=== PATIENT | female | born 1930 | race Caucasian/White ===

== ENCOUNTER → 2017-05-02 09:15 | Emergency (ER) | payer MEDICARE ==
[~2017-05-02 09:15] MED LIST: diPHENhydraMINE PO* 25 MG PO ONE; traMADol TAB* 50 MG PO ONE
--- NOTE | 2017-05-02 12:42 | RAD ---
INDICATION: Right rib injury. TECHNIQUE: 4 views of the right ribs and dual-energy PA views of the chest were obtained. FINDINGS: There are numerous old healed right mid and lower posterior lateral rib fractures. In addition, there appear to be acute fractures of the right posterior eighth and ninth ribs. There is an old healed fracture of the proximal right humerus. The heart is within normal limits in size. The lungs are underinflated and grossly clear. No pneumothorax is seen. There is flattening of the diaphragms consistent with chronic obstructive pulmonary disease. IMPRESSION: 1. PROBABLE ACUTE NONDISPLACED FRACTURES OF THE RIGHT POSTERIOR EIGHTH AND NINTH RIBS. 2. NUMEROUS OLD HEALED RIGHT POSTEROLATERAL RIB FRACTURES.
--- NOTE | 2017-05-02 12:46 | ED ---
Back Pain - HPI Summary HPI Summary: Patient presents with right sided thoracic pain after falling back into the side of a wall 2 days ago with no improvement of symptoms or pain. There is a small deformity noted over the right upper back. Patient has scoliosis and kyphosis at baseline. She is otherwise healthy. Denies hitting head or LOC. Denies other pain. She is ambulating OK. She has taken ibuprofen without much relief of symptoms. - History of Current Complaint Chief Complaint: EDBackInjuryPain Stated Complaint: FALL, BACK PAIN Time Seen by Provider: 05/02/17 10:59 Hx Obtained From: Patient Onset/Duration: Sudden Onset Onset/Duration: Started Hours Ago Timing: Constant Back Pain Location: Is Discrete @ - right thoracic rib Severity Currently: Moderate Pain Intensity: 10 Pain Scale Used: 0-10 Numeric Character: Aching, Throbbing Aggravating Symptom(s): Movement Alleviating Symptom(s): Rest Associated Signs And Symptoms: Positive: Other - small deformity noted - Risk Factors AAA Risk Factors: Negative TAD Risk Factors: Negative Cauda Equina Risk Factors: Negative Epidural Abscess Risk Factors: Negative - Allergies/Home Medications Allergies/Adverse Reactions: Allergies Allergy/AdvReac Type Severity Reaction Status Date / Time Penicillins Allergy Hives Verified 05/02/17 12:01 PMH/Surg Hx/FS Hx/Imm Hx Previously Healthy: Yes - Immunization History Hx Pertussis Vaccination: No Immunizations Up to Date: Unable to Obtain/Confirm Infectious Disease History: No Infectious Disease History: Denies: Traveled Outside the [place] in Last 30 Days - Social History Occupation: Unemployed, Retired Lives: With Family Alcohol Use: Rare Alcohol Amount: 2 glasses of wine daily Hx Substance Use: No Substance Use Type: Reports: None Hx Tobacco Use: No Smoking Status (MU): Light Every Day Tobacco Smoker Review of Systems Constitutional: Negative Eyes: Negative Cardiovascular: Negative Respiratory: Negative Positive: no symptoms reported, see HPI Positive: Arthralgia, Myalgia Skin: Negative Neurological: Negative Psychological: Normal All Other Systems Reviewed And Are Negative: Yes Physical Exam Triage Information Reviewed: Yes Vital Signs On Initial Exam: Initial Vitals Temp Pulse Resp BP Pulse Ox 97.8 F 69 16 116/57 95 05/02/17 09:15 05/02/17 09:15 05/02/17 09:15 05/02/17 09:15 05/02/17 09:15 Vital Signs Reviewed: Yes Appearance: Positive: Well-Appearing, Well-Nourished Skin: Positive: Warm, Skin Color Reflects Adequate Perfusion Head/Face: Positive: Normal Head/Face Inspection Eyes: Positive: EOMI, JUSTIN, Conjunctiva Clear Neck: Positive: Supple, No Lymphadenopathy Respiratory/Lung Sounds: Positive: Clear to Auscultation, Breath Sounds Present Cardiovascular: Positive: Normal Musculoskeletal: Positive: Pain @ - right thoracic rib Neurological: Positive: Alert, Oriented to Person Place, Time, Speech Normal Psychiatric: Positive: Normal AVPU Assessment: Alert - Katty Coma Scale Coma Scale Total: 15 Diagnostics - Vital Signs Vital Signs Temp Pulse Resp BP Pulse Ox 05/02/17 12:02 98.3 F 74 16 138/50 96 05/02/17 11:32 78 16 144/49 96 05/02/17 10:47 98.1 F 63 17 73/46 95 05/02/17 09:15 97.8 F 69 16 116/57 95 - Laboratory Lab Statement: Any lab studies that have been ordered have been reviewed, and results considered in the medical decision making process. Back Pain Course/Dx - Course Course Of Treatment: Patient presents with 2 days worsening right thoracic rib pain after falling backwards into a wall. Rib series : IMPRESSION: 1. PROBABLE ACUTE NONDISPLACED FRACTURES OF THE RIGHT POSTERIOR EIGHTH AND NINTH RIBS. 2. NUMEROUS OLD HEALED RIGHT POSTEROLATERAL RIB FRACTURES. Tramadol given with reaction of anxiety and restlessness. Benadryl 25mg given in ED. Sent home with rx for oxycodone and follow up as needed. Paitent and daughter made aware of plan and is OK with discharge. Patient will follow up with PCP and return if symptoms become worse. Return precautions given, medications and side effects reviewed. - Diagnoses Differential Diagnosis/HQI/PQRI: Positive: Fracture, Strain, Sprain Provider Diagnoses: Right rib fracture Discharge - Discharge Plan Condition: Stable Disposition: HOME Prescriptions: Oxycodone-Ibuprofen [Oxycodone/Ibuprofen 5-400 mg] 1 tab PO Q6H #20 tab MDD 4 Patient Education Materials: Rib Fracture (ED) Referrals: Non Staff,Doctor [Primary Care Provider] - Additional Instructions: Follow up with PCP If symptoms become worse, return to the ED immediately
[2017-05-02 13:09] VITALS: BP 131/88
== END | disposition home or self-care (01) ==
LOC: ED 09:15
DX: S22.31XA Fracture of one rib, right side, initial encounter for closed fracture (principal); W19.XXXA Unspecified fall, initial encounter; Y93.9 Activity, unspecified; Y92.9 Unspecified place or not applicable
CPT/HCPCS: 99282; A9270-GY

== ENCOUNTER 2018-05-03 13:28 | Emergency (ER) | payer MEDICARE ==
[2018-05-03] MEDS ORDERED: Acetaminophen TAB* 325 MG PO ONE (13:52)
--- NOTE | 2018-05-03 14:39 | ED ---
Adult Trauma - HPI Summary HPI Summary: Patient is an 87-year-old female who presents emergency department for a facial injury after falling just prior to arrival. History was obtained from patient' s daughter who was at bedside. Patient does reside with her daughter and has a history of Parkinson's disease. Patient's daughter states she does have frequent falls. She states they were getting out of the car when she slipped on the wet ground and fell. Patient's daughter states that she has not been sick recently or had any complaints of lightheadedness, dizziness, chest pain, shortness of breath. Patient's only complaint is pain to her upper lip. She is not anticoagulated. Symptoms are moderate in severity. Touching affected area makes symptoms worse. Rest makes symptoms better. - History of Current Complaint Chief Complaint: EDFacialInjury Stated Complaint: FALL Time Seen by Provider: 05/03/18 13:37 Hx Obtained From: Family/Push Connector Assembler Hx From Patient Unobtainable Due To: Dementia Pain Intensity: 5 - Allergy/Home Medications Allergies/Adverse Reactions: Allergies Allergy/AdvReac Type Severity Reaction Status Date / Time MS Penicillins [Penicillins] Allergy Hives Verified 02/08/18 12:11 PMH/Surg Hx/FS Hx/Imm Hx Previously Healthy: Yes Endocrine/Hematology History: Denies: Hx Diabetes Cardiovascular History: Denies: Hx Hypertension, Hx Pacemaker/ICD History: Denies: Hx Renal Disease Sensory History: Denies: Hx Hearing Aid Psychiatric History: Denies: Hx Panic Disorder - Surgical History Surgery Procedure, Year, and Place: CATARCT - [facility]. LT BREAST - LUMPECTOMY - BENIGN. VARICOSE VEINS Infectious Disease History: No Infectious Disease History: Denies: Traveled Outside the [place] in Last 30 Days - Social History Occupation: Retired Lives: With Family Alcohol Use: Rare Alcohol Amount: 1/2 glasses of wine daily Hx Substance Use: No Substance Use Type: Reports: None Hx Tobacco Use: No Smoking Status (MU): Former Smoker Review of Systems Constitutional: Negative Eyes: Negative ENT: Negative Cardiovascular: Negative Respiratory: Negative Gastrointestinal: Negative Genitourinary: Negative Positive: Other - Nasal pain Positive: Headache. Negative: Weakness, Paresthesia, Numbness, Syncope, Slurred Speech All Other Systems Reviewed And Are Negative: Yes Physical Exam Triage Information Reviewed: Yes Vital Signs On Initial Exam: Initial Vitals Temp Pulse Resp BP Pulse Ox 97.8 F 74 18 168/65 94 05/03/18 13:35 05/03/18 13:35 05/03/18 13:35 05/03/18 13:35 05/03/18 13:35 Vital Signs Reviewed: Yes Appearance: Positive: Pain Distress - Pt. lying in bed. Appears to be in pain but is nontoxic. Daughter present. Skin: Positive: Warm, Dry Head/Face: Positive: Other - Ecchymosis and edema noted over the bridge of the nose. Eyes: Positive: Normal, EOMI, JUSTIN ENT: Positive: Other - Very minimal bleeding from the left nare. No septal hematoma bilaterally. 1cm gaping laceration noted to the mid left upper lip. laceration does not cross the [place] border. Neck: Positive: Supple Abdomen Description: Positive: Nontender, Soft Musculoskeletal: Positive: Other - Full ROM of hips without pain. Neurological: Positive: Normal, CN Intact II-III Psychiatric: Positive: Affect/Mood Appropriate Procedures - Laceration/Wound Repair 1 Location: mouth - Upper lip. Pt. decline lacal anesthesia. Description: Linear Length, Depth and Shape: 1cm linear Betadine Prep?: No Irrigated w/ Saline (ccs): 10 Laceration/Wound Explored: clean Closure: Single Layer Suture Type: Chromic - 6-0 Number of Sutures: 2 Layer Closure?: No Sterile Dressing Applied?: No Diagnostics - Vital Signs Vital Signs Temp Pulse Resp BP Pulse Ox 05/03/18 13:35 97.8 F 74 18 168/65 94 - Laboratory Lab Statement: Any lab studies that have been ordered have been reviewed, and results considered in the medical decision making process. Adult Trauma Course/Dx - Course Course Of Treatment: Patient presenting for facial injuries after a mechanical fall. Vital signs are stable. She has minimal epistaxis. CT scan of head, face and neck were obtained. CT scans of head and neck are negative for acute injuries, reading per radiology. Facial x-ray shows bilateral nasal fractures, reading per radiology. To observe all sutures are placed and lip laceration. Results were discussed with patient and daughter. To call the ENT office tomorrow to schedule close follow-up appointment. Tylenol for pain as directed. To ice and elevate. To return to the ER symptoms change or worsen. Patient and daughter understand and agree with plan. - Diagnoses Differential Diagnosis/HQI/PQRI: Positive: Contusion(s), Fracture, Hematoma(s), Laceration(s) Provider Diagnoses: Nasal bone fractures, Lip laceration Discharge - Sign-Out/Discharge Documenting (check all that apply): Patient Departure - Discharge Plan Condition: Good Disposition: HOME Patient Education Materials: Nasal Fracture (ED), Care For Your Absorbable Stitches (ED) Referrals: Jay Bunch MD [Medical Doctor] - Jay Delacruz MD [Primary Care Provider] - Additional Instructions: Call Dr. Bunch's office today to schedule a follow up appointment Ice intermittently Keep head elevated Tylenol or Motrin for pain as directed Return to ER if symptoms change or worsen - Billing Disposition and Condition Condition: GOOD Disposition: Home
--- NOTE | 2018-05-03 14:51 | RAD ---
HISTORY: fall, unable to straighten head COMPARISONS: None TECHNIQUE: Multiple contiguous axial CT scans were obtained of the cervical spine without intravenous contrast, with coronal and sagittal multiplanar reformations. FINDINGS: BRAIN: The visualized brain is unremarkable CENTRAL CANAL: Evaluation of the central canal is limited on CT technique; however, there is no obvious canalicular mass or epidural hemorrhage. ALIGNMENT: There is straightening of the cervical lordosis. VERTEBRAL BODIES: There is diffuse osteopenia. Is multilevel anterolateral marginal osteophyte formation. There is no displaced fracture. JOINTS: There is uncovertebral and facet osteoarthritis. There is no subluxation or dislocation. MUSCULATURE: Unremarkable INTERVERTEBRAL DISCS: There is diffuse loss of intervertebral disc height. AXIAL IMAGES: C2-C3: There is right greater than left uncovertebral and facet hypertrophy. There is mild right neural foraminal narrowing. There is no osseous central canal stenosis. C3-C4: There is bilateral uncovertebral and facet hypertrophy. There is moderate left neural foraminal area. There is no osseous central canal stenosis. C4-C5: There is bilateral uncovertebral and facet hypertrophy. There is mild bilateral neuroforaminal narrowing. There is no osseous central canal stenosis. C5-C6: There is bilateral uncovertebral and facet hypertrophy. There is moderate bilateral neuroforaminal narrowing. There is no osseous central canal stenosis. C6-C7: There is bilateral uncovertebral hypertrophy. There is mild bilateral neural foraminal narrowing. There is no osseous central canal stenosis. C7-T1: There is no osseous neural foraminal narrowing or central canal stenosis. SOFT TISSUES: The visualized soft tissues of the neck are unremarkable. The prevertebral fat stripe is preserved. OTHER: None. IMPRESSION: 1. OSTEOPENIA. 2. DEGENERATIVE DISC DISEASE AND OSTEOARTHRITIS. 3. NO ACUTE OSSEOUS INJURY TO THE CERVICAL SPINE.
--- NOTE | 2018-05-03 14:52 | RAD ---
INDICATION: Head injury. COMPARISON: Comparison is made with prior MRI of the brain from February 09, 2018. TECHNIQUE: Contiguous axial sections of the brain were obtained from the skull base to the vertex without contrast. FINDINGS: The ventricles, cisterns and sulci are enlarged consistent with diffuse atrophy. There are small areas of decreased density in the subcortical and periventricular white matter suggestive of mild chronic small vessel ischemic changes. No other focal abnormality or mass effect is seen. There is no evidence for hemorrhage. There appear to be comminuted displaced fractures of the nasal bones. The visualized portion of the paranasal sinuses appear grossly clear. IMPRESSION: NO EVIDENCE FOR ACUTE INTRACRANIAL ABNORMALITY.
--- NOTE | 2018-05-03 14:53 | RAD ---
HISTORY: fall COMPARISONS: None TECHNIQUE: Multiple contiguous axial CT scans were obtained of the face without intravenous contrast, with coronal and sagittal multiplanar reformations. FINDINGS: BONES: There are comminuted fractures of the nasal bones bilaterally. There is diffuse osteopenia. Is intact. The zygomatic arches are intact. The pterygoid plates are intact. There is osteoarthritis of the temporomandibular joints, greater on the right than on the left. ORBITS: The globes are round. The optic nerves are symmetric. The extraocular musculature is normal. There is no post septal or intraconal inflammatory change. There is no retrobulbar hematoma. Senile calcifications are noted. PARANASAL SINUSES: The nasal septum is deviated to the left. There is mucosal thickening of the ethmoid air cells and left nasal cavity. BRAIN AND SOFT TISSUE: Unremarkable. OTHER: Degenerative changes are noted of the spine. IMPRESSION: COMMINUTED FRACTURES OF THE NASAL BONES BILATERALLY.
[2018-05-03 16:36] VITALS: BP 142/78
== END 2018-05-03 16:25 | disposition home or self-care (01) ==
LOC: ED 13:28
DX: S02.2XXA Fracture of nasal bones, initial encounter for closed fracture (principal); S01.511A Laceration without foreign body of lip, initial encounter; W01.0XXA Fall on same level from slipping, tripping and stumbling without subsequent striking against object, initial encounter; Z91.81 History of falling; Y93.89 Activity, other specified; Y92.9 Unspecified place or not applicable; M85.88 Other specified disorders of bone density and structure, other site; Z88.0 Allergy status to penicillin; Z87.891 Personal history of nicotine dependence
CPT/HCPCS: 12011; 70450; 70486; 72125; 99283; A9270-GY

== ENCOUNTER 2018-05-10 20:35 | Inpatient (IN) | payer MEDICARE ==
[2018-05-10 22:24] LABS: ABS Basophils 0.1 10^3/ul (0-0.2); ABS Eosinophils 0.1 10^3/ul (0-0.6); ABS Lymphocytes 1.9 10^3/ul (1.0-4.8); ABS Monocytes 0.7 10^3/ul (0-0.8); ABS Neutrophils 8.4 10^3/ul (1.5-7.7); ABS Nucleated RBC 0 10^3/ul; Eosinophil % 0.6 % (0-6); Hematocrit 33 % (35-47); Lymphocyte % 16.9 % (25-47); Mean Corpuscular HGB Conc 33 g/dl (31-36); Mean Corpuscular Hemoglobin 29 pg (27-31); Mean Corpuscular Volume 88 fL (80-97); Mean Platelet Volume 8.8 um3 (7.4-10.4); Nucleated Red Blood Cells % 0; Platelet Count 250 10^3/ul (150-450); Red Cell Distribution Width 16 % (10.5-15); White Blood Count 11.1 10^3/ul (3.5-10.8)
[2018-05-10 22:30] LABS: INR 1.02 (0.77-1.02)
[2018-05-10] MEDS ORDERED: NS 0.9% 500 ML* 500 ML IV ONE (23:53)
[2018-05-11] MEDS ORDERED: NS 0.9% 1000 ML*IV.FLUID IV ONE (00:54)
[2018-05-11] MEDS ORDERED: NS 0.9% 500 ML* 500 ML IV ONE (01:27)
--- NOTE | 2018-05-11 01:57 | ED ---
Throat Pain/Nasal Congestion - HPI Summary HPI Summary: Patient complains of intermittent epistaxis over the past week after fall and subsequent nasal fracture per maxillofacial CT. Patient followed by [facility] or. Patient was seen by Drs. zaldivar to this morning. Patient can't complains of persistent epistaxis since visiting clinic this a.m. Also complains of weakness, shortness of breath, inability to ambulate. Family states unable to take care of her in this condition. Denies fever, cough, sore throat, CP, N/V/D, abdominal pain, change in urine or BM. Medical history is Parkinson's. No anti-coag. - History of Current Complaint Chief Complaint: EDEpistaxis Time Seen by Provider: 05/10/18 20:53 Hx Obtained From: Patient Onset/Duration: Gradual Onset Severity: Moderate Associated Signs And Symptoms: Positive: Negative Cough: None - Allergies/Home Medications Allergies/Adverse Reactions: Allergies Allergy/AdvReac Type Severity Reaction Status Date / Time Penicillins Allergy Hives Verified 05/10/18 23:09 Home Medications: Home Medications Amantadine HCl [Gocovri] 137 mg PO DAILY 05/10/18 [History Confirmed 05/10/18] Carbidopa/Levodopa [Carbidopa-Levodopa 25-100 Tab] 1 each PO QID 05/10/18 [ History Confirmed 05/10/18] Fludrocortisone Acetate TAB* [Florinef TAB*] 0.1 mg PO DAILY 05/10/18 [History Confirmed 05/10/18] Gabapentin CAP(*) [Neurontin 300 CAP(*)] 300 mg PO BID 05/10/18 [History Confirmed 05/10/18] Sertraline HCl [Zoloft] 75 mg PO DAILY 05/10/18 [History Confirmed 05/10/18] PMH/Surg Hx/FS Hx/Imm Hx Endocrine/Hematology History: Denies: Hx Anticoagulant Therapy, Hx Diabetes Cardiovascular History: Denies: Hx Hypertension, Hx Pacemaker/ICD History: Denies: Hx Renal Disease Sensory History: Denies: Hx Hearing Aid Psychiatric History: Denies: Hx Panic Disorder - Surgical History Surgery Procedure, Year, and Place: CATARCT - [facility]. LT BREAST - LUMPECTOMY - BENIGN. VARICOSE VEINS Infectious Disease History: No Infectious Disease History: Denies: Traveled Outside the [place] in Last 30 Days - Social History Alcohol Use: Occasionally Alcohol Amount: 1/2 glasses of wine daily Hx Substance Use: No Substance Use Type: Reports: None Hx Tobacco Use: No Smoking Status (MU): Former Smoker Review of Systems Constitutional: Negative Eyes: Negative Positive: Epistaxis Cardiovascular: Negative Positive: Shortness Of Breath Gastrointestinal: Negative Genitourinary: Negative Musculoskeletal: Negative Skin: Negative Positive: Weakness Psychological: Normal All Other Systems Reviewed And Are Negative: Yes Physical Exam - Summary Physical Exam Summary: Very minimal bleeding from nose here in the ED. Front of clothing covered in blood. Patient alert oriented, appears weak and anxious. Triage Information Reviewed: Yes Vital Signs On Initial Exam: Initial Vitals Temp Pulse Resp BP Pulse Ox 98.6 F 130 20 125/75 95 05/10/18 20:38 05/10/18 20:38 05/10/18 20:38 05/10/18 20:38 05/10/18 20:38 Vital Signs Reviewed: Yes Appearance: Positive: Well-Appearing Skin: Positive: Warm Head/Face: Positive: Normal Head/Face Inspection Eyes: Positive: Normal ENT: Positive: Normal ENT inspection Neck: Positive: Supple Respiratory/Lung Sounds: Positive: Clear to Auscultation Cardiovascular: Positive: Normal Abdomen Description: Positive: Nontender Musculoskeletal: Positive: Normal Neurological: Positive: Normal Psychiatric: Positive: Normal AVPU Assessment: Alert - Katty Coma Scale Best Eye Response: 4 - Spontaneous Best Motor Response: 6 - Obeys Commands Best Verbal Response: 5 - Oriented Coma Scale Total: 15 Diagnostics - Vital Signs Vital Signs Temp Pulse Resp BP Pulse Ox 05/11/18 01:18 116 184/99 95 05/11/18 01:00 117 93 05/11/18 00:48 126 140/97 95 05/11/18 00:18 129 165/95 98 05/11/18 00:00 127 97 05/10/18 23:48 123 155/102 98 05/10/18 23:46 119 97 05/10/18 23:18 120 147/91 99 05/10/18 23:04 118 98 05/10/18 23:02 98 F 121 16 131/86 99 05/10/18 20:38 98.6 F 130 20 125/75 95 - Laboratory Lab Results: Lab Results 05/10/18 05/10/18 Range/Units 22:15 22:15 WBC 11.1 H (3.5-10.8) 10^3/ul RBC 3.80 L (4.00-5.40) 10^6/ul Hgb 11.0 L (12.0-16.0) g/dl Hct 33 L (35-47) % MCV 88 (80-97) fL MCH 29 (27-31) pg MCHC 33 (31-36) g/dl RDW 16 H (10.5-15) % Plt Count 250 (150-450) 10^3/ul MPV 8.8 (7.4-10.4) um3 Neut % (Auto) 75.6 (38-83) % Lymph % (Auto) 16.9 L (25-47) % Mclean % (Auto) 6.0 (0-7) % Eos % (Auto) 0.6 (0-6) % Baso % (Auto) 0.9 (0-2) % Absolute Neuts (auto) 8.4 H (1.5-7.7) 10^3/ul Absolute Lymphs (auto) 1.9 (1.0-4.8) 10^3/ul Absolute Monos (auto) 0.7 (0-0.8) 10^3/ul Absolute Eos (auto) 0.1 (0-0.6) 10^3/ul Absolute Basos (auto) 0.1 (0-0.2) 10^3/ul Absolute Nucleated RBC 0 10^3/ul Nucleated RBC % 0 INR (Anticoag Therapy) 1.02 (0.77-1.02) Result Diagrams: 05/10/18 22:15 05/11/18 01:59 Lab Statement: Any lab studies that have been ordered have been reviewed, and results considered in the medical decision making process. - EKG 1 Cardiac Rate: Other Rate EKG Rhythm: Atrial Flutter ST Segment: Non-Specific Ectopy: None EKG Interpretation: stable afib EENT Course/Dx - Course Course Of Treatment: Patient complains of intermittent epistaxis over the past week after fall and subsequent nasal fracture per maxillofacial CT. Patient followed by ENT Dr oWlf. Patient was seen by Timur Bunch this morning. Patient complains of persistent epistaxis since visiting clinic this a.m. Also complains of weakness, shortness of breath, inability to ambulate. Family states unable to take care of her in this condition. Denies fever, cough , sore throat, CP, N/V/D, abdominal pain, change in urine or BM. Medical history is Parkinson's. No anti-coag. Discussed patient with Dr. Duran director geothermal operations for ENT, who recommended nasal packing. And follow-up with his trauma injury Wednesday for scheduled surgery. Patient refused packing. Very minimal bleeding from nose here in the ED. Front of clothing covered in blood. Patient alert oriented, appears weak and anxious. Labs and imaging unremarkable. Vital signs unremarkable other than tachycardia. Patient is in very anxious state. Discussed patient with hospitalist Dr. Pennington for failure to thrive and inability take care of herself. Will admit. - Diagnoses Provider Diagnoses: Weakness, Unable to ambulate, Epistaxis Discharge - Sign-Out/Discharge Documenting (check all that apply): Patient Departure - Discharge Plan Condition: Stable Disposition: ADMITTED TO [facility] Referrals: Jay Delacruz MD [Primary Care Provider] - - Billing Disposition and Condition Condition: STABLE Disposition: Admitted to [facility]
[2018-05-11 02:25] LABS: EGFR Non-African American 83.3 (>60)
[2018-05-11] MEDS ORDERED: Albuterol 2.5 MG/3 ML NEB.SOL* (0.083%) INH PRN (03:42)
[2018-05-11] MEDS ORDERED: Ondansetron INJ* 2 MG/ML VIAL IV PRN (03:42)
[2018-05-11] MEDS ORDERED: Al Hydrox/Mg Hydrox/Simet LIQ* 30 ML UDC PO PRN (03:42)
[2018-05-11] MEDS ORDERED: oxyCODONE/Acetamin 5/325 MG* TAB PO PRN (03:42)
[2018-05-11] MEDS ORDERED: Magnesium Hydroxide LIQ* 30 ML UDC PO PRN (03:42)
[2018-05-11] MEDS ORDERED: Morphine INJ* 2 MG/ML 1 ML SYRINGE (TWO MG - NEW SYRINGE VERSION) IV PRN (03:42)
[2018-05-11] MEDS ORDERED: LORazepam TAB(*) 0.5 MG PO PRN (03:58)
[2018-05-11] MEDS ORDERED: Melatonin 3 MG TAB PO SCH (05:00)
[2018-05-11] MEDS ORDERED: Melatonin 3 MG TAB PO PRN (05:27)
[2018-05-11] MEDS: NS 0.9% 1000 ML* 1,000 ML IV SCH ×2 (05:39→21:44)
[2018-05-11 06:49] LABS: ABS Basophils 0.1 10^3/ul (0-0.2); ABS Eosinophils 0 10^3/ul (0-0.6); ABS Lymphocytes 2.2 10^3/ul (1.0-4.8); ABS Monocytes 0.7 10^3/ul (0-0.8); ABS Neutrophils 9.5 10^3/ul (1.5-7.7); ABS Nucleated RBC 0 10^3/ul; Eosinophil % 0.2 % (0-6); Hematocrit 28 % (35-47); Hemoglobin 9.1 g/dl (12.0-16.0); Lymphocyte % 17.5 % (25-47); Mean Corpuscular HGB Conc 33 g/dl (31-36); Mean Corpuscular Hemoglobin 29 pg (27-31); Mean Corpuscular Volume 89 fL (80-97); Mean Platelet Volume 9.1 um3 (7.4-10.4); Nucleated Red Blood Cells % 0; Platelet Count 248 10^3/ul (150-450); Red Blood Count 3.13 10^6/ul (4.00-5.40); Red Cell Distribution Width 15 % (10.5-15); White Blood Count 12.5 10^3/ul (3.5-10.8)
--- NOTE | 2018-05-11 07:56 | RAD ---
HISTORY: sob COMPARISONS: None VIEWS: 1: frontal portable view of the chest at 1:55 AM. The patient is obliqued to the left. FINDINGS: LINES AND TUBES: None. CARDIOMEDIASTINAL SILHOUETTE: The cardiomediastinal silhouette is normal for portable technique. PLEURA: The costophrenic angles are sharp. No pleural abnormalities are noted. LUNG PARENCHYMA: There is hyperinflation. ABDOMEN: The upper abdomen is clear. There is no subphrenic gas. BONES AND SOFT TISSUES: There is chronic posttraumatic deformity to the right hemithorax and proximal left humerus. There is diffuse osteopenia. Degenerative changes are noted. There is atherosclerotic calcification of the neck. IMPRESSION: 1. LIMITED STUDY. 2. COPD. R1
[2018-05-11] MEDS: Gabapentin CAP(*) 300 MG PO SCH ×2 (07:57→20:31)
[2018-05-11] MEDS: Carbidopa/Levodop 25/100 MG TAB(*) PO SCH ×4 (07:57→20:32)
[2018-05-11] MEDS: Sertraline* 25 MG TAB PO SCH (07:57)
[2018-05-11] MEDS: Fludrocortisone Acetate TAB* 0.1 MG PO SCH ×2 (08:00→08:07)
--- NOTE | 2018-05-11 08:32 | HP ---
CC: Dr. Jay Delacruz* ADMISSION HISTORY AND PHYSICAL: DATE OF ADMISSION: 05/11/18 PATIENT OF: Khadra Pennington MD as attending hospitalist.* (DICTATED BY KIM AVILA) PRIMARY CARE PHYSICIAN: Jay Delacruz MD CHIEF COMPLAINT: Epistaxis. HISTORY OF PRESENT ILLNESS: Ms. Vinson is an 87-year-old female who has past medical history significant for advanced Parkinson's disease who unfortunately sustained a fall about a week ago falling on her face with subsequent nasal fracture for which she had an ED visit with a CT scan. She had initial epistaxis that was well controlled back then and eventually discharged home to be followed by ENT doctor. The patient and her daughter report seeing Dr. Bunch in his clinic and plans were made for her to return to the operating room by the end of this week to undergo fixation of her broken nose. According to the daughter, Bea who takes care of her mother at home, she has been doing well since her fall except for last night when she started having intermittent nosebleed as well. The patient is noted to introduce her finger to her nostril on occasion, but denies any aggressive nose blowing or sneezing. She occasionally feels some blood drops on back of her throat, but denies any cough, aspiration, chest pain, or shortness of breath. She presented to the emergency room today after she had a long episode of nosebleed. She had laboratory workup that showed stable hemoglobin and hematocrit with no evidence of significant anemia. The patient also notes that overall she has not been feeling very well since her fall last week. According to her daughter, she has been slowing down in general with some declining in her overall health for what she came to the emergency room for further evaluation. Dr. Duran was contacted by the emergency department provider and he recommended admitting the patient and we will obtain an ENT consult in the morning. The patient does not have any active nosebleed at the time of admission; however, it was recommended for her to have a nasal packing inserted; however, she declined any packing due to her increased level of discomfort with this device. PAST MEDICAL HISTORY: Significant for: 1. History of Parkinson's disease. 2. Seasonal allergies. 3. Chronic pain. PAST SURGICAL HISTORY: Significant for bilateral cataract extractions. It is noted that the patient is legally blind; she can only recognize shadows from both eyes. 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 CURRENT MEDICATIONS: Her medications at home include: 1. Amantadine extended release 137 mg p.o. daily. 2. Carbidopa/levodopa 25/100 mg 1 tablet p.o. q.i.d. 3. Florinef 0.1 mg tablet p.o. once daily. 4. Neurontin 300 mg p.o. b.i.d. 5. Zoloft 75 mg p.o. daily. ALLERGIES: She is allergic to PENICILLINS. SOCIAL HISTORY: The patient lives at home with her daughter caring for her who also is the healthcare proxy. She is a nonsmoker who drinks very little alcohol on rare occasions. She denies illicit drug use. FAMILY HISTORY: Reviewed and noncontributory. REVIEW OF SYSTEMS: See HPI. Otherwise, 12 points of review of systems were examined and were essentially negative. PHYSICAL EXAMINATION GENERAL: She is a frail, elderly female, appears comfortable and in no acute distress or discomfort at the time of admission. VITAL SIGNS: Revealed a blood pressure 174/97, pulse of 122, temperature of 98 , O2 sat of 92% on room air. HEENT: Head is normocephalic, atraumatic. Sclerae are anicteric. Nose with a slight deviation of the septum to the right side. Left nostril appears dry, right nostril with old clotted blood noted, no evidence of active bleeding. There is a very mild tenderness at the nasal septum with residual ecchymosis. Pharynx is pink and moist with no evidence of posterior bleed noted. NECK: Supple. Trachea midline. No cervical adenopathy or thyromegaly. LUNGS: Clear to auscultation bilaterally. HEART: Regular rhythm with increased rate. No rubs, murmurs, or gallops. BACK: With normal curvature. No CVA tenderness. BREASTS: Exam deferred at this time. ABDOMEN: Soft, nontender, nondistended. No hernias, masses, or hepatosplenomegaly. RECTAL: Exam deferred at this time. EXTREMITIES: Without cyanosis, clubbing, or edema. NEUROLOGIC: She is awake, alert, oriented and cooperative. LABORATORY WORKUP: CBC with white count of 11,000, hemoglobin of 11, and hematocrit of 33, platelets of 250. Her INR is 1.02. Chemistry with sodium of 142, potassium 4.2, chloride 112, CO2 24, BUN of 44 and creatinine of 0.67. Her glucose is 114. LFTs within normal limits. Troponin 0.01. ACCESSORY DIAGNOSTIC DATA: Portable chest with no evidence of acute cardiopulmonary disease. Her EKG revealed sinus tachycardia with heart rate in the 110s. No ST changes noted. IMPRESSION: An 87-year-old female with past medical history significant for advanced Parkinson's disease who sustained a fall at home a week ago resulting in facial injury and nasal fracture with secondary epistaxis who continued to have intermittent epistaxis at home and presented to the emergency room today for evaluation and will be admitted for observation under medical services for the following. ASSESSMENT AND PLAN: 1. Epistaxis. The patient is hemodynamically stable at this point with no evidence of active bleeding. She had refused nasal packing at this point. I have discussed with her that if the bleeding become an issue and could not be stopped in a conservative fashion, then we might need to use nasal packing to control her epistaxis. We will recheck her H and H in the morning and consultation already done for Dr. Duran who will see the patient for further evaluation. at this point, the patient may need to go to the operating room earlier than Wednesday for control of her epistaxis and possible fixation of her nasal fracture. She appears to be breathing smoothly with good oxygen saturation. 2. History of Parkinson's disease. We will provide supportive care and we will continue her home medicine of carbidopa/levodopa as well as amantadine. 3. Anxiety, depression. We will continue her home dose of Zoloft. 4. Chronic pain. She will continue her gabapentin from home. 5. DVT prophylaxis: The patient is a high risk given her age; however, with her recent intermittent nosebleed, I will hold off any heparin coverage for the time being and we will provide mechanical SCDs for now. 6. Code status: She wishes to be DNR and her MOLST form was reviewed and updated. 7. Disposition: Admit to medical floor for observation and ENT consultation in the morning for control of epistaxis and eventually OR for fixation of nasal bone fracture. TIME SPENT: Approximately 60 minutes was spent admitting this patient with greater than 50% on taking history and performing physical exam. I went on and discussed the case with Dr. Pennington, who agreed to plan of care and will follow up accordingly. KIM AVILA [id number]/[facility] #: [id number] [facility] CENTERCesilia
--- NOTE | 2018-05-11 08:40 | PN ---
Subjective Date of Service: 05/11/18 Interval History: Patient seen and examined at bedside. Denies fever, chills, lightheadedness or dizziness, chest discomfort, N/V/D. Pt states that she is having "trouble breathing". She is unable to breath through her nose due to dry blood. Breathing appears to be comfortable at this time, Pt asking to have oximask removed. Pt states that she isn't aware of a dx of A fib. Per NSG staff Pt has been tachycardic since arrival to the unit. The also report that when she is set up, she has a bloody nose. Pt is currently sitting up at 40 degree with no bleeding noted. Kelli states that she saw Dr. Bunch last week and is scheduled for a procedure this Wednesday. Family History: Unchanged from Admission Social History: Unchanged from Admission Past Medical History: Unchanged from Admission Objective Active Medications: Acetaminophen (Tylenol Tab*) 650 mg PO Q4H PRN Reason: FEVER/PAIN Al Hydrox/Mg Hydrox/Simethicone (Maalox Plus*) 30 ml PO Q6H PRN Reason: INDIGESTION Albuterol (Ventolin 2.5 Mg/3 Ml Neb.Hanh*) 2.5 mg INH [id number] AWAKE PRN Reason: sob/wheezing Carbidopa/Levodopa (Sinemet 25/100 Tab(*)) 1 tab PO QID JOHNATHAN Fludrocortisone Acetate (Florinef Tab*) 0.1 mg PO DAILY JOHNATHAN Gabapentin (Neurontin Cap(*)) 300 mg PO BID JOHNATHAN Sodium Chloride (Ns 0.9% 1000 Ml*) 1,000 mls @ 75 mls/hr IV PER RATE JOHNATHAN Magnesium Hydroxide (Milk Of Magnesia Liq*) 30 ml PO Q4H PRN Reason: CONSTIPATION Melatonin (Melatonin) 3 mg PO QPM PRN; Protocol Reason: SLEEP Morphine Sulfate (Morphine Inj ((Syringe))*) 1 mg IV Q4H PRN Reason: PAIN Non-Formulary Medication (Amantadine Hcl [Gocovri]) 137 mg PO DAILY JOHNATHAN Ondansetron HCl (Zofran Inj*) 4 mg IV Q4H PRN Reason: NAUSEA/VOMITING Oxycodone/Acetaminophen (Percocet 5/325 Tab*) 1 tab PO Q4H PRN Reason: Pain Sertraline HCl (Zoloft*) 75 mg PO DAILY JOHNATHAN Vital Signs - 8 hr 05/11/18 05/11/18 05/11/18 00:48 01:00 01:18 Temperature Pulse Rate 126 117 116 Respiratory Rate Blood Pressure 140/97 184/99 (mmHg) O2 Sat by Pulse 95 93 95 Oximetry 05/11/18 05/11/18 05/11/18 01:48 02:00 02:18 Temperature Pulse Rate 110 110 113 Respiratory Rate Blood Pressure 152/100 175/87 (mmHg) O2 Sat by Pulse 94 95 96 Oximetry 05/11/18 05/11/18 05/11/18 02:48 03:00 03:18 Temperature Pulse Rate 122 122 132 Respiratory Rate Blood Pressure 174/97 179/110 (mmHg) O2 Sat by Pulse 92 93 94 Oximetry 05/11/18 05/11/18 05/11/18 03:48 04:00 04:18 Temperature Pulse Rate 124 124 135 Respiratory Rate Blood Pressure 165/88 143/117 (mmHg) O2 Sat by Pulse 95 96 93 Oximetry 05/11/18 05/11/18 05/11/18 04:24 04:49 05:48 Temperature 97.8 F 97.8 F Pulse Rate 122 133 Respiratory 20 12 Rate Blood Pressure 143/117 (mmHg) O2 Sat by Pulse 95 96 Oximetry 05/11/18 07:57 Temperature Pulse Rate Respiratory 28 Rate Blood Pressure (mmHg) O2 Sat by Pulse Oximetry Oxygen Devices in Use Now: OxyMask - 2 L Appearance: NAD, sitting up in bed at 40 degrees Ears/Nose/Mouth/Throat: Mucous Membranes Moist, - - Dry crusting to left nare Respiratory: Symmetrical Chest Expansion and Respiratory Effort, Clear to Auscultation Cardiovascular: NL Sounds; No Murmurs; No JVD, RRR - , tachycardic Abdominal: NL Sounds; No Tenderness; No Distention Extremities: No Edema Skin: No Rash or Ulcers, - - Ecchymosis to face Neurological: Alert and Oriented x 3, NL Muscle Strength and Tone Lines/Tubes/Other Access: Clean, Dry and Intact Peripheral IV - site benign Nutrition: Taking PO's Result Diagrams: 05/11/18 06:16 05/11/18 01:59 Assess/Plan/Problems-Billing Assessment: Ms. Vinson is an 87 yo female with PMH significant for Parkinson's disease and legally blind who fell approximately 1 week ago resulting in a nasal fracture, she presented to the emergency room with complaints of - Patient Problems (1) Epistaxis Code(s): R04.0 - EPISTAXIS SNOMED Code(s): 295498557 Comment: - Bleeding controlled at this time - ENT consult pending (2) Tachycardia Code(s): R00.0 - TACHYCARDIA, UNSPECIFIED SNOMED Code(s): 7534475 Comment: - EKG this AM shows sinus tachycardia - Suspect secondary to anxiety (3) Anemia Code(s): D64.9 - ANEMIA, UNSPECIFIED SNOMED Code(s): 235258521 Comment: - Suspect secondary to acute blood loss anemia in the setting of epistaxis - Asymptomatic, HH stable at this time - Continue to trend HH (4) Parkinson disease Code(s): G20 - PARKINSON'S DISEASE SNOMED Code(s): 13207035 Comment: - Continue Sinemet and Amantadine (5) Anxiety and depression Code(s): F41.9 - ANXIETY DISORDER, UNSPECIFIED; F32.9 - MAJOR DEPRESSIVE DISORDER, SINGLE EPISODE, UNSPECIFIED SNOMED Code(s): 91918463 Comment: - Continue zoloft (6) Chronic pain Code(s): G89.29 - OTHER CHRONIC PAIN SNOMED Code(s): 65145491 Comment: - Continue gabapentin (7) DVT prophylaxis Code(s): LSE1743 - SNOMED Code(s): 025427716 Comment: - SCDs - No chemical DVT prophylaxis in the setting of epistaxis (8) DNR (do not resuscitate) Status and Disposition: Inpatient. Discharge to home when medically stable.
[2018-05-11] MEDS ORDERED: AMANTADINE HCL 137 MG PO SCH (09:00)
[2018-05-11] MEDS: AMANTADINE HCL 137 MG PO SCH (18:02)
[2018-05-11] MEDS: Acetaminophen TAB* 325 MG PO PRN (21:45)
[2018-05-12 07:48] LABS: ABS Basophils 0.1 10^3/ul (0-0.2); ABS Eosinophils 0.2 10^3/ul (0-0.6); ABS Lymphocytes 2.9 10^3/ul (1.0-4.8); ABS Monocytes 0.4 10^3/ul (0-0.8); ABS Neutrophils 3.6 10^3/ul (1.5-7.7); ABS Nucleated RBC 0 10^3/ul; Eosinophil % 2.9 % (0-6); Hematocrit 20 % (35-47); Hemoglobin 6.7 g/dl (12.0-16.0); Lymphocyte % 40.5 % (25-47); Mean Corpuscular HGB Conc 34 g/dl (31-36); Mean Corpuscular Hemoglobin 30 pg (27-31); Mean Corpuscular Volume 88 fL (80-97); Mean Platelet Volume 8.9 um3 (7.4-10.4); Nucleated Red Blood Cells % 0.1; Platelet Count 179 10^3/ul (150-450); Red Blood Count 2.25 10^6/ul (4.00-5.40); Red Cell Distribution Width 16 % (10.5-15); White Blood Count 7.1 10^3/ul (3.5-10.8)
[2018-05-12] MEDS: Carbidopa/Levodop 25/100 MG TAB(*) PO SCH ×4 (07:52→20:34)
[2018-05-12] MEDS: Fludrocortisone Acetate TAB* 0.1 MG PO SCH ×2 (07:52→08:02)
[2018-05-12] MEDS: Sertraline* 25 MG TAB PO SCH (07:52)
[2018-05-12] MEDS: Gabapentin CAP(*) 300 MG PO SCH ×2 (07:52→20:34)
[2018-05-12] MEDS: Acetaminophen TAB* 325 MG PO PRN (16:33)
--- NOTE | 2018-05-12 17:30 | PN ---
Subjective Date of Service: 05/12/18 Interval History: Ms. Vinson denies complaint today. She feels that she is likely still having some bleeding as she tastes it when she swallows. She denies chest pain, SOB, nausea, or abdominal pain. Family History: Unchanged from Admission Social History: Unchanged from Admission Past Medical History: Unchanged from Admission Objective Active Medications: Acetaminophen (Tylenol Tab*) 650 mg PO Q4H PRN Al Hydrox/Mg Hydrox/Simethicone (Maalox Plus*) 30 ml PO Q6H PRN Albuterol (Ventolin 2.5 Mg/3 Ml Neb.Hanh*) 2.5 mg INH [id number] AWAKE PRN Carbidopa/Levodopa (Sinemet 25/100 Tab(*)) 1 tab PO 0800,1200,1600,2000 JOHNATHAN Fludrocortisone Acetate (Florinef Tab*) 0.1 mg PO DAILY JOHNATHAN Gabapentin (Neurontin Cap(*)) 300 mg PO BID JOHNATHAN Magnesium Hydroxide (Milk Of Magnesia Liq*) 30 ml PO Q4H PRN Melatonin (Melatonin) 3 mg PO QPM PRN; Protocol Morphine Sulfate (Morphine Inj ((Syringe))*) 1 mg IV Q4H PRN (Amantadine Hcl [ (Gocovri] 137 Mg)) 137 mg PO QPM JOHNATHAN Ondansetron HCl (Zofran Inj*) 4 mg IV Q4H PRN Sertraline HCl (Zoloft*) 75 mg PO DAILY [facility] Vital Signs: Temp Pulse Resp BP Pulse Ox 98.4 F 80 18 133/52 98 05/12/18 16:43 05/12/18 16:43 05/12/18 16:43 05/12/18 16:43 05/12/18 16:43 Oxygen Devices in Use Now: None Appearance: Female lying in bed in NAD Eyes: No Scleral Icterus Ears/Nose/Mouth/Throat: Mucous Membranes Moist Neck: Trachea Midline Respiratory: Symmetrical Chest Expansion and Respiratory Effort, Clear to Auscultation Cardiovascular: NL Sounds; No Murmurs; No JVD, No Edema Abdominal: NL Sounds; No Tenderness; No Distention Lymphatic: No Cervical Adenopathy Extremities: No Edema Skin: No Rash or Ulcers - Scattered ecchymosis noted to face , - - Scattered Ecchymosis noted to face Neurological: Alert and Oriented x 3, - - Tremor noted Result Diagrams: 05/12/18 07:18 08 01:59 Assess/Plan/Problems-Billing Assessment: Ms. Vinson is an 87 yo female with PMH significant for Parkinson's disease and legally blind who fell approximately 1 week ago resulting in a nasal fracture, she presented to the emergency room with complaints of epistaxis. - Patient Problems (1) Anemia Comment: - Acute blood loss due to epistaxis. Hgb down to 6.7 this AM. - Two units of blood transfused today. - Recheck H/H in AM. (2) Epistaxis Comment: - ENT to take to OR tomorrow. (3) Tachycardia Comment: - Resolved. (4) Parkinson disease Comment: - Continue Sinemet and Amantadine (5) Anxiety and depression Comment: - Continue zoloft (6) Chronic pain Comment: - Continue gabapentin (7) DVT prophylaxis Comment: - SCDs - No chemical DVT prophylaxis in the setting of epistaxis (8) DNR (do not resuscitate) Comment: Status and Disposition: Inpatient. Anticipate discharge to home when medically stable.
[2018-05-12] MEDS: AMANTADINE HCL 137 MG PO SCH ×2 (18:16→20:34)
[2018-05-12] MEDS ORDERED: Artificial Tears* 15 ML BTL BOTH EYES PRN (18:49)
[2018-05-12] MEDS ORDERED: Polyethyl Glycol/Propylene Gly OPHTH.SOLN BOTH EYES PRN (19:00)
[2018-05-13 06:16] LABS: Hematocrit 27 % (35-47); Hemoglobin 9.3 g/dl (12.0-16.0)
[2018-05-13] MEDS: Carbidopa/Levodop 25/100 MG TAB(*) PO SCH ×4 (08:19→20:12)
[2018-05-13] MEDS: Fludrocortisone Acetate TAB* 0.1 MG PO SCH (08:19)
[2018-05-13] MEDS: Gabapentin CAP(*) 300 MG PO SCH ×3 (08:19→20:11)
[2018-05-13] MEDS: Sertraline* 25 MG TAB PO SCH ×2 (08:20→13:29)
--- NOTE | 2018-05-13 08:44 | PN ---
Subjective Date of Service: 05/13/18 Interval History: Ms. Vinson is anxious about surgery this morning but denies acute complaint. She states that she can still feel the sensation that she having posterior nasal bleeding with drainage into her throat. She denies chest pain, SOB, nausea, or abdominal pain. Family History: Unchanged from Admission Social History: Unchanged from Admission Past Medical History: Unchanged from Admission Objective Active Medications: Acetaminophen (Tylenol Tab*) 650 mg PO Q4H PRN Al Hydrox/Mg Hydrox/Simethicone (Maalox Plus*) 30 ml PO Q6H PRN Albuterol (Ventolin 2.5 Mg/3 Ml Neb.Hanh*) 2.5 mg INH [id number] AWAKE PRN Carbidopa/Levodopa (Sinemet 25/100 Tab(*)) 1 tab PO 0800,1200,1600,2000 JOHNATHAN Fludrocortisone Acetate (Florinef Tab*) 0.1 mg PO DAILY JOHNATHAN Gabapentin (Neurontin Cap(*)) 300 mg PO BID JOHNATHAN Magnesium Hydroxide (Milk Of Magnem Liq*) 30 ml PO Q4H PRN Melatonin (Melatonin) 3 mg PO QPM PRN; Protocol Morphine Sulfate (Morphine Inj ((Syringe))*) 1 mg IV Q4H PRN (Amantadine Hcl [ (Gocovri] 137 Mg)) 137 mg PO 2200 JOHNATHAN Ondansetron HCl (Zofran Inj*) 4 mg IV Q4H PRN Polyethyl Glycol/Propylene Glycol (Lubricant Eye Drops) 1 drop BOTH EYES Q2H PRN Sertraline HCl (Zoloft*) 75 mg PO DAILY [facility] Vital Signs: Temp Pulse Resp BP Pulse Ox 98.7 F 94 18 138/65 95 05/13/18 07:29 05/13/18 07:29 05/13/18 08:19 05/13/18 07:29 05/13/18 07:29 Oxygen Devices in Use Now: None Appearance: Female lying in bed in NAD Eyes: No Scleral Icterus Ears/Nose/Mouth/Throat: Mucous Membranes Moist Neck: Trachea Midline Respiratory: Symmetrical Chest Expansion and Respiratory Effort, Clear to Auscultation Cardiovascular: NL Sounds; No Murmurs; No JVD, No Edema Abdominal: NL Sounds; No Tenderness; No Distention Extremities: No Edema Skin: - - Scattered resolving echymoses to face Neurological: Alert and Oriented x 3, - - No tremor noted this morning, generalized weakness Nutrition: - - NPO for surgery Result Diagrams: 05/13/18 05:39 05/11/18 01:59 Assess/Plan/Problems-Billing Assessment: Ms. Vinson is an 87 yo female with PMH significant for Parkinson's disease and legally blind who fell approximately 1 week ago resulting in a nasal fracture, she presented to the emergency room with complaints of epistaxis. - Patient Problems (1) Anemia Comment: - Acute blood loss due to epistaxis. Hgb back up to 9.3 after 2 units PRBC yesterday. - Recheck H/H in AM. (2) Epistaxis Comment: - ENT to take to OR today to repair nasal fracture. (3) Parkinson disease Comment: - Continue Sinemet and Amantadine (4) Anxiety and depression Comment: - Continue zoloft (5) Chronic pain Comment: - Continue gabapentin (6) DVT prophylaxis Comment: - SCDs - No chemical DVT prophylaxis in the setting of epistaxis (7) DNR (do not resuscitate) Comment: Status and Disposition: Inpatient. Anticipate discharge to home when medically stable.
[2018-05-13] MEDS ORDERED: Naloxone* 0.4 MG/ML 1 ML VIAL IV PRN (12:02)
[2018-05-13] MEDS: AMANTADINE HCL 137 MG PO SCH (21:53)
[2018-05-13] MEDS: Acetaminophen TAB* 325 MG PO PRN (22:21)
--- NOTE | 2018-05-14 00:49 | OP ---
DATE OF OPERATION: 05/13/18 - ROOM #[id number] DATE OF : 30 SURGEON: Reji Bunch MD PRE-OP DIAGNOSIS: Displaced closed nasal fractures. POST-OP DIAGNOSIS: Displaced closed nasal fractures. OPERATIVE PROCEDURE: Closed reduction of nasal fractures under some IV sedation. COMPLICATIONS: None. DISPOSITION: Good. SPECIMENS: None. ESTIMATED BLOOD LOSS: None. DESCRIPTION OF PROCEDURE: The patient was taken to the operating room, placed in supine position on the operating table, and she was given some IV sedation. Nose was packed with cottonoids impregnated with oxymetazoline and 4% lidocaine. These were removed and using both external pressure and the intranasal elevator, I manipulated the bones into position. She had little bleeding up in the vestibule of the right nostril and she also, I thought, had a tendency that it wanted to collapse. I cauterized the area that she had a little bleeding with the silver nitrate and then used Fibrillar to pack up high in her nose bilaterally to help support the nasal bones. Mastisol was placed on her skin. Paper tapes were placed. An Aquaplast splint was fashioned, warm , molded to the nose, cooled and taped in place. The patient tolerated this procedure well, no complications, and transferred to the recovery room in stable condition. [id number]/[facility] #: [id number] HENRY
[2018-05-14 06:13] LABS: Hematocrit 31 % (35-47); Hemoglobin 10.4 g/dl (12.0-16.0)
--- NOTE | 2018-05-14 06:50 | PN ---
Subjective Date of Service: 05/14/18 Interval History: Ms. Vinson reports feeling well today. She denies acute complaint. She is supportive of the plan for rehab at [facility] tomorrow. Family History: Unchanged from Admission Social History: Unchanged from Admission Past Medical History: Unchanged from Admission Objective Active Medications: Acetaminophen (Tylenol Tab*) 650 mg PO Q4H PRN Al Hydrox/Mg Hydrox/Simethicone (Maalox Plus*) 30 ml PO Q6H PRN Albuterol (Ventolin 2.5 Mg/3 Ml Neb.Hanh*) 2.5 mg INH [id number] AWAKE PRN Carbidopa/Levodopa (Sinemet 25/100 Tab(*)) 1 tab PO 0800,1200,1600,2000 JOHNATHAN Fludrocortisone Acetate (Florinef Tab*) 0.1 mg PO DAILY JOHNATHAN Gabapentin (Neurontin Cap(*)) 300 mg PO BID JOHNATHAN Magnesium Hydroxide (Milk Of Magnesia Liq*) 30 ml PO Q4H PRN Melatonin (Melatonin) 3 mg PO QPM PRN; Protocol Morphine Sulfate (Morphine Inj ((Syringe))*) 1 mg IV Q4H PRN (Amantadine Hcl [ (Gocovri] 137 Mg)) 137 mg PO 2200 JOHNATHAN Ondansetron HCl (Zofran Inj*) 4 mg IV Q4H PRN Polyethyl Glycol/Propylene Glycol (Lubricant Eye Drops) 1 drop BOTH EYES Q2H PRN Sertraline HCl (Zoloft*) 75 mg PO DAILY [facility] Vital Signs: Temp Pulse Resp BP Pulse Ox 97.7 F 73 16 152/67 99 05/14/18 04:36 05/14/18 04:36 05/14/18 04:36 05/14/18 04:36 05/14/18 04:36 Oxygen Devices in Use Now: None Appearance: Female lying in bed in NAD Neck: Trachea Midline Respiratory: Symmetrical Chest Expansion and Respiratory Effort, Clear to Auscultation Cardiovascular: NL Sounds; No Murmurs; No JVD, No Edema Abdominal: NL Sounds; No Tenderness; No Distention Extremities: No Edema Skin: No Rash or Ulcers Neurological: Alert and Oriented x 3, - - Generalized weakness Nutrition: Taking PO's Result Diagrams: 05/14/18 06:03 05/11/18 01:59 Assess/Plan/Problems-Billing Assessment: Ms. Vinson is an 87 yo female with PMH significant for Parkinson's disease and legally blind who fell approximately 1 week ago resulting in a nasal fracture, she presented to the emergency room with complaints of epistaxis. - Patient Problems (1) Anemia Comment: - Resolved. - Acute blood loss due to epistaxis. (2) Epistaxis Comment: - ENT took to OR today to repair nasal fracture. (3) Parkinson disease Comment: - Continue Sinemet and Amantadine - Weak, PT following, plan for subacute rehab at [facility] (4) Anxiety and depression Comment: - Continue zoloft (5) Chronic pain Comment: - Continue gabapentin (6) DVT prophylaxis Comment: - SCDs - No chemical DVT prophylaxis in the setting of epistaxis (7) DNR (do not resuscitate) Comment: Status and Disposition: Inpatient. Discharge to [facility] tomorrow.
[2018-05-14] MEDS: Carbidopa/Levodop 25/100 MG TAB(*) PO SCH ×4 (08:02→20:18)
[2018-05-14] MEDS: Gabapentin CAP(*) 300 MG PO SCH ×2 (08:02→20:18)
[2018-05-14] MEDS: Sertraline* 25 MG TAB PO SCH (08:02)
[2018-05-14] MEDS: Fludrocortisone Acetate TAB* 0.1 MG PO SCH (08:03)
[2018-05-14] MEDS ORDERED: Carbidopa/Levodop 25/100 MG TAB(*) PO SCH ×2 (11:30→22:00)
[2018-05-14 16:43] LABS: Hematocrit 31 % (35-47); Hemoglobin 10.3 g/dl (12.0-16.0)
[2018-05-14] MEDS: AMANTADINE HCL 137 MG PO SCH (20:18)
[2018-05-15 06:48] LABS: ABS Basophils 0.1 10^3/ul (0-0.2); ABS Eosinophils 0.2 10^3/ul (0-0.6); ABS Lymphocytes 2.2 10^3/ul (1.0-4.8); ABS Monocytes 0.6 10^3/ul (0-0.8); ABS Neutrophils 4.8 10^3/ul (1.5-7.7); ABS Nucleated RBC 0 10^3/ul; Eosinophil % 2.1 % (0-6); Hematocrit 30 % (35-47); Hemoglobin 10.1 g/dl (12.0-16.0); Mean Corpuscular HGB Conc 34 g/dl (31-36); Mean Corpuscular Hemoglobin 30 pg (27-31); Mean Corpuscular Volume 87 fL (80-97); Mean Platelet Volume 8.3 um3 (7.4-10.4); Nucleated Red Blood Cells % 0; Platelet Count 212 10^3/ul (150-450); Red Blood Count 3.41 10^6/ul (4.00-5.40); Red Cell Distribution Width 16 % (10.5-15); White Blood Count 7.8 10^3/ul (3.5-10.8)
--- NOTE | 2018-05-15 07:29 | PN ---
Subjective Date of Service: 05/15/18 Interval History: Ms. Vinson reports feeling somewhat better today. She continues to feel that it is harder to breathe since she had a nose fracture repaired but is breathing easily through her mouth. She denies chest pain, nausea, or abdominal pain. Her parkinsonian movements seem to be less pronounced this morning than yesterday afternoon. Family History: Unchanged from Admission Social History: Unchanged from Admission Past Medical History: Unchanged from Admission Objective Active Medications: Acetaminophen (Tylenol Tab*) 650 mg PO Q4H PRN Al Hydrox/Mg Hydrox/Simethicone (Maalox Plus*) 30 ml PO Q6H PRN Albuterol (Ventolin 2.5 Mg/3 Ml Neb.Hanh*) 2.5 mg INH RT.[id number] AWAKE PRN Carbidopa/Levodopa (Sinemet 25/100 Tab(*)) 1 tab PO 0800,1200,1600,2000 JOHNATHAN Fludrocortisone Acetate (Florinef Tab*) 0.1 mg PO DAILY JOHNATHAN Gabapentin (Neurontin Cap(*)) 300 mg PO BID JOHNATHAN Magnesium Hydroxide (Milk Of Magnesia Liq*) 30 ml PO Q4H PRN Melatonin (Melatonin) 3 mg PO QPM PRN; Protocol Morphine Sulfate (Morphine Inj ((Syringe))*) 1 mg IV Q4H PRN (Amantadine Hcl [ (Gocovri] 137 Mg)) 137 mg PO 2200 JOHNATHAN Ondansetron HCl (Zofran Inj*) 4 mg IV Q4H PRN Polyethyl Glycol/Propylene Glycol (Lubricant Eye Drops) 1 drop BOTH EYES Q2H PRN Sertraline HCl (Zoloft*) 75 mg PO DAILY [facility] Vital Signs: Temp Pulse Resp BP Pulse Ox 98.0 F 66 16 124/72 93 05/15/18 04:26 05/15/18 07:24 05/15/18 07:24 05/15/18 07:24 05/15/18 06:05 Oxygen Devices in Use Now: None Appearance: Female lying in bed in NAD Eyes: No Scleral Icterus Ears/Nose/Mouth/Throat: Mucous Membranes Moist Neck: Trachea Midline Respiratory: Symmetrical Chest Expansion and Respiratory Effort, Clear to Auscultation Cardiovascular: NL Sounds; No Murmurs; No JVD, No Edema Abdominal: NL Sounds; No Tenderness; No Distention Extremities: No Edema Skin: No Rash or Ulcers Neurological: Alert and Oriented x 3, - - Generalized weakness Nutrition: Taking PO's Result Diagrams: 05/15/18 06:21 05/11/18 01:59 Assess/Plan/Problems-Billing Assessment: Ms. Vinson is an 87 yo female with PMH significant for Parkinson's disease and legally blind who fell approximately 1 week ago resulting in a nasal fracture, she presented to the emergency room with complaints of epistaxis. - Patient Problems (1) Anemia Comment: - Resolved. - Acute blood loss due to epistaxis. (2) Epistaxis Comment: - Nasal fracture repaired by ENT. (3) Parkinson disease Comment: - Continue Sinemet and Amantadine - Weak, PT following, plan for subacute rehab at [facility] (4) Anxiety and depression Comment: - Continue zoloft (5) Chronic pain Comment: - Continue gabapentin (6) DVT prophylaxis Comment: - SCDs - No chemical DVT prophylaxis in the setting of epistaxis (7) DNR (do not resuscitate) Comment: Status and Disposition: Inpatient. Discharge to [facility] Wednesday.
[2018-05-15] MEDS: Gabapentin CAP(*) 300 MG PO SCH ×2 (07:30→21:17)
[2018-05-15] MEDS: Fludrocortisone Acetate TAB* 0.1 MG PO SCH (07:31)
[2018-05-15] MEDS: Sertraline* 25 MG TAB PO SCH (07:31)
[2018-05-15] MEDS: Carbidopa/Levodop 25/100 MG TAB(*) PO SCH ×4 (07:31→19:55)
--- NOTE | 2018-05-15 14:28 | DS ---
CC: Dr. Delacruz * DISCHARGE SUMMARY: DATE OF ADMISSION: 05/11/18 DATE OF ANTICIPATED DISCHARGE: 05/16/18 PRIMARY CARE PHYSICIAN: Dr. Delacruz. ATTENDING PHYSICIAN: Dr. Baldomero [place] * (dictation provided by Sofia Adamson NP) PRIMARY DIAGNOSES: 1. Epistaxis. 2. Acute blood loss anemia. SECONDARY DIAGNOSES: 1. History of Parkinson's disease. 2. Seasonal allergies. 3. Chronic pain. MEDICATIONS AT THE TIME OF DISCHARGE: 1. Gabapentin 300 mg p.o. b.i.d. 2. Amantadine 137 mg p.o. at bedtime. 3. Sertraline 75 mg p.o. q.a.m. 4. Florinef 0.1 mg p.o. q.a.m. 5. Carbidopa/levodopa 25/100 one tab p.o. 4 times a day. HOSPITAL COURSE: Ms. Vinson is an 87-year-old female with a past medical history of Parkinson's, who presented to the emergency room on 05/11/18 with concern for nosebleed. Please see the dictated H and P from [facility] for complete details. In brief, the patient states that she had fallen about a week prior to admission and landed on her face and had a nasal fracture. She was seen in the emergency department at that time and had a CT scan both of maxillofacial and cervical spine and brain. She was only found to have a comminuted fracture of the nasal bones bilaterally. The patient was seen by ENT outpatient with plans for fracture repair; however, the patient continued to have intermittent bleeding, therefore presented to the emergency room. In the emergency room, the patient had labs, which showed hemoglobin of 11.0 with hematocrit 33. Remainder of her labs were unremarkable. Ms. Vinson was admitted to hospital. She was seen in consultation by Dr. Duran from ENT and plans were made for her to have repair of the nasal fracture on 05/13/18. In the interim, the patient developed acute blood loss anemia with a deandre hemoglobin of 6.7 on 05/12/18. At that time, she was transfused 2 units packed red blood cells and now her hemoglobin is 10.1 on the day prior to discharge. Ms. Vinson did go on to have a nasal fracture repair on 05/13/18. The patient will need to follow up with ENT outpatient and I am requesting that the ENT office be called on Wednesday for followup appointment. Ms. Vinson is medically stable for discharge to [facility] on 05/16/18. DISPOSITION: To [facility]. DIET: Regular. ACTIVITY: As tolerated. FOLLOWUP PLAN: 1. Please follow up with [facility]. Please call on 05/16/18 for a followup appointment. 2. Please follow up with Dr. Delacruz in the next 1 to 2 weeks. TIME SPENT: Approximately 60 minutes was spent on the discharge of this patient , more than half the time was spent with the patient at the bedside reviewing the events leading up to and during this hospitalization, performing the physical examination and reviewing my plan of care. SOFIA ADAMSON NP [id number]/CPS #: [id number] HENRY
[2018-05-15] MEDS: AMANTADINE HCL 137 MG PO SCH (21:16)
[2018-05-16] MEDS: Gabapentin CAP(*) 300 MG PO SCH (08:00)
[2018-05-16] MEDS: Carbidopa/Levodop 25/100 MG TAB(*) PO SCH ×2 (08:00→12:09)
[2018-05-16] MEDS: Sertraline* 25 MG TAB PO SCH (08:01)
[2018-05-16] MEDS: Fludrocortisone Acetate TAB* 0.1 MG PO SCH (08:01)
[2018-05-16 12:14] VITALS: BP 120/46
== END 2018-05-16 13:35 | DRG 812 ==
LOC: ED 20:35 → INTOOBSV 05-11 03:42 → MED 05-11 03:42 → OBSVTOIN 05-12 10:00
PROVIDERS: ADMIT Pediatrics; ATTEND Internal Medicine
PROC: 30233N1 Transfusion of Nonautologous Red Blood Cells into Peripheral Vein, Percutaneous Approach (ICD-10-PCS; 2018-05-12)
PROC: 0NSBXZZ Reposition Nasal Bone, External Approach (ICD-10-PCS; principal; 2018-05-13 12:00)
DX: D62 Acute posthemorrhagic anemia (principal); G20 Parkinson's disease; R04.0 Epistaxis; J30.2 Other seasonal allergic rhinitis; G89.29 Other chronic pain; H54.8 Legal blindness, as defined in USA; F41.8 Other specified anxiety disorders; Z66 Do not resuscitate; S02.2XXA Fracture of nasal bones, initial encounter for closed fracture; W19.XXXA Unspecified fall, initial encounter; Z79.1 Long term (current) use of non-steroidal anti-inflammatories (NSAID); Z88.0 Allergy status to penicillin; Z79.899 Other long term (current) drug therapy; Y92.009 Unspecified place in unspecified non-institutional (private) residence as the place of occurrence of the external cause
CPT/HCPCS: 36415; 71045; 80053; 82803; 83605; 83880; 84484; 85014; 85018; 85025; 85610; 85730; 86850; 86900; 86901; 86922; 93005; 94640; 99285; A9270-GY; G0378; G8978-GP-CK; G8979-GP-CI; P9040

== ENCOUNTER 2019-12-12 16:54 | Emergency (ER) | payer MEDICARE ==
[2019-12-12] MEDS ORDERED: oxyCODONE/Acetamin 5/325 MG* TAB PO ONE (17:36)
--- NOTE | 2019-12-12 17:36 | ED ---
Complex/Multi-Sys Presentation - HPI Summary HPI Summary: Patient is an 89 y/o F presenting to the ED via EMS for a chief complaint of right hip, right calf, and right shoulder pain after a fall that occurred on 12/28. Patient notes falling on her right side. The fall was unwitnessed when she attempted ambulation with a walker at her NH. She is legally blind. Pain worse w leg movement. PMHx is significant for Parkinson's disease. Any relevant PSHx or FMHx is denied. - History Of Current Complaint Chief Complaint: EDFall Time Seen by Provider: 12/12/19 17:00 Hx Obtained From: Patient, Medical Records Onset/Duration: Sudden Onset, Still Present Timing: Constant Severity Currently: Moderate Severity Initially: Moderate Aggravating Factor(s): movement Alleviating Factor(s): Nothing Associated Signs And Symptoms: Positive: Other - Positive right hip, right calf , and right shoulder pain. Negative: Syncope - LOC - Allergies/Home Medications Allergies/Adverse Reactions: Allergies Allergy/AdvReac Type Severity Reaction Status Date / Time Penicillins Allergy Intermediate Hives Verified 05/11/18 17:00 Home Medications: Home Medications Fludrocortisone Acetate TAB* [Florinef TAB*] 0.1 mg PO QAM 05/10/18 [History Confirmed 12/12/19] Gabapentin CAP(*) [Neurontin 300 CAP(*)] 300 mg PO BID 05/10/18 [History Confirmed 12/12/19] Amantadine HCl [Gocovri] 137 mg PO BEDTIME 12/12/19 [History Confirmed 12/12/19] Apixaban* [Eliquis*] 2.5 mg PO BID 12/12/19 [History Confirmed 12/12/19] Calcium Citrate TAB* [Citracal TAB*] 630 mg PO BID 12/12/19 [History Confirmed 12/12/19] Carbidopa/Levodop CR 50/200(*) [Sinemet CR 50/200(*)] 1 tab.cr PO BID 12/12/19 [ History Confirmed 12/12/19] Carboxymethylcellulose Sodium [Refresh Tears] 2 drop BOTH EYES BID 12/12/19 [ History Confirmed 12/12/19] Docusate CAP* [Colace Cap*] 100 mg PO DAILY PRN 12/12/19 [History Confirmed 12/28] Folic Acid/Multivit-Min/Lutein [Multi-Vitamin Gummies] 1 chw PO DAILY 12/12/19 [ History Confirmed 12/12/19] Sertraline* [Zoloft*] 75 mg PO DAILY 12/12/19 [History Confirmed 12/12/19] PMH/Surg Hx/FS Hx/Imm Hx Previously Healthy: Yes Endocrine/Hematology History: Denies: Hx Anticoagulant Therapy, Hx Diabetes Cardiovascular History: Reports: Hx Atrial Fibrillation, Hx Hypotension, Hx Valvular Heart Disease Denies: Hx Pacemaker/ICD History: Denies: Hx Renal Disease Musculoskeletal History: Reports: Other Musculoskeletal History - Yes, tremors r /t Parkinson Sensory History: Reports: Hx Cataracts, Hx Eye Injury, Hx Legally Blind Denies: Hx Contacts or Glasses - macular degeneration- poor vision, Hx Deafness, Hx Hearing Aid Opthamlomology History: Reports: Hx Cataracts, Hx Eye Injury, Hx Legally Blind Denies: Hx Contacts or Glasses - macular degeneration- poor vision EENT History: Denies: Hx Deafness Neurological History: Reports: Hx Nerve Disease - parkinson's disease Denies: Hx Dementia, Hx Developmental Delay, Hx Migraine, Hx Seizures, Hx Spinal Cord Injury Psychiatric History: Reports: Hx Anxiety, Hx Depression Denies: Hx Panic Disorder - Cancer History Hx Chemotherapy: No - Surgical History Surgical History: Yes Surgery Procedure, Year, and Place: CATARCT - MAKI. LT BREAST - LUMPECTOMY - BENIGN. VARICOSE VEINS both legs Hx Anesthesia Reactions: No Infectious Disease History: No Infectious Disease History: Denies: Hx Clostridium Difficile, Hx Hepatitis, Hx of Known/Suspected MRSA, Hx Shingles, Hx Tuberculosis, Hx Known/Suspected VRE, Hx Known/Suspected VRSA, Traveled Outside the [place] in Last 30 Days - Family History Known Family History: Negative: Cardiac Disease, Hypertension, Diabetes - Social History Occupation: Retired Lives: With Family Alcohol Use: Occasionally Alcohol Amount: 1/2 glasses of wine daily Hx Substance Use: No Substance Use Type: Reports: None Hx Tobacco Use: Yes Smoking Status (MU): Former Smoker Type: Cigarettes Amount Used/How Often: smoked off and on 1/2ppd Review of Systems Positive: Arthralgia - Right hip and shoulder, Myalgia - Right calf Negative: Syncope - LOC All Other Systems Reviewed And Are Negative: Yes Physical Exam - Summary Physical Exam Summary: Constitutional: Elderly Alert, Cooperative Skin: Warm, Dry HENT: Normocephalic, atraumatic. Midface stable Eyes: pupils non reactive Neck: Trachea is midline. No stridor; No JVD; No step off; No posterior cervical spine tenderness Cardio: Rhythm regular, rate normal Heart sounds normal; Intact distal pulses; Radial pulses are 2+ and symmetric. Pulmonary/Chest wall: Effort normal; Breath sounds normal; Equal chest rise; No flail segment; No rib tenderness; No sternal tenderness Abd: Soft, Appearance normal. No distension; No tenderness Musculoskeletal: Full ROM and no tenderness at ankles, elbows and knees; No joint swelling; No vertebral body tenderness; No paraspinal tenderness; No step off or deformity of the spine; Right shoulder and proximal humerus tenderness, right hip and proximal femur tenderness, right tibia/fibula tenderness. No TTP L hip/pelvis. Neuro: Alert, Oriented x3, GCS 15. Psych: Mood and affect Normal Triage Information Reviewed: Yes Vital Signs On Initial Exam: Initial Vitals Temp Pulse Resp BP Pulse Ox 98.9 F 85 22 168/90 92 12/12/19 17:01 12/12/19 17:01 12/12/19 17:01 12/12/19 17:01 12/12/19 17:01 Vital Signs Reviewed: Yes Procedures - Sedation Patient Received Moderate/Deep Sedation with Procedure: No Diagnostics - Vital Signs Vital Signs Temp Pulse Resp BP Pulse Ox 12/12/19 17:01 98.9 F 85 22 168/90 92 - Laboratory Lab Statement: Any lab studies that have been ordered have been reviewed, and results considered in the medical decision making process. - Radiology Chest X-ray Radiology Interpretation Completed By: ED Physician Summary of Radiographic Findings: Chest X-ray IMPRESSION: no acute abnormality. Reviewed and interpreted by Dr. Medrano, pending official radiology report. Lower Extremity X-ray Radiology Interpretation Completed By: ED Physician Summary of Radiographic Findings: Lower Extremity X-ray IMPRESSION: no acute abnormality. Reviewed and interpreted by Dr. Medrano, pending official radiology report. Shoulder X-ray Radiology Interpretation Completed By: ED Physician Summary of Radiographic Findings: Shoulder X-ray IMPRESSION: no acute fracture. Reviewed and interpreted by Dr. Medrano, pending official radiology report. Hip X-ray Radiology Interpretation Completed By: ED Physician Summary of Radiographic Findings: Hip X-ray IMPRESSION: pubic rami fracture. Reviewed and interpreted by Dr. Medrano, pending official radiology report. Humerus X-ray Radiology Interpretation Completed By: ED Physician Summary of Radiographic Findings: Humerus X-ray IMPRESSION: no acute abnormality. Reviewed and interpreted by Dr. Medrano, pending official radiology report. Femur X-ray Radiology Interpretation Completed By: ED Physician Summary of Radiographic Findings: Femur X-ray IMPRESSION: pubic rami fracture. Reviewed and interpreted by Dr. Medrano, pending official radiology report. Tibia/Fibula X-ray Radiology Interpretation Completed By: ED Physician Summary of Radiographic Findings: Tibia/Fibula X-ray IMPRESSION: no acute abnormality. Reviewed and interpreted by Dr. Medrano, pending official radiology report. Re-Evaluation - Re-Evaluation First Eval Re-Evaluation Time: 18:35 Change: Unchanged Comment: At 18:35, patients nurse reports that radiology staff are concerned about patients pain. Will give fentanyl before additional XR Complex Multi-Symp Course/Dx Course Of Treatment: 89 y/o F p/w R hip/LE and R shoulder pain after fall. - no obvious trauma to RUE or RLE but has significant TTP R pelvis/hip. - plain films w pubic rami fracture, d/w orthopedics hospital nurse liaison will check CT pelvis. - signed out pending imaging. - Diagnoses Provider Diagnoses: Fall, Hip pain, Shoulder pain - Physician Notifications Discussed Care Of Patient With: Eliecer Morales - At 18:52, Dr. Colvin agrees with x-ray read and states that if patient only has a pubic rami fracture, can admit to hospitalist. Time Discussed With Above Provider: 18:52 Discharge ED - Sign-Out/Discharge Documenting (check all that apply): Sign-Out Patient Signing out patient TO: Joana Duran - Patient is a sign out at 19:[address] Tayler Medrano to Dr. Joana Duran at shift change, pending CT , further workup, and disposition. - Discharge Plan Condition: Stable Disposition: TRANS HIGHER LVL OF CARE FAC Referrals: Jay Delacruz MD [Primary Care Provider] - - Billing Disposition and Condition Condition: STABLE Disposition: Trans Higher Lvl of Care Fac - Attestation Statements Document Initiated by Timothyibe: Yes Documenting Scribe: Yuliya Serrano Provider For Whom Palomo is Documenting (Include Credential): Tayler Medrano MD Scribe Attestation: Yuliya Carlson, scribed for Tayler Medrano MD on 12/12/19 at 2046. Scribe Documentation Reviewed: Yes Provider Attestation: The documentation as recorded by the Yuliya simon accurately reflects the service I personally performed and the decisions made by , Tayler Medrano MD Status of Scribe Document: Viewed
--- OUTSIDE RECORDS SUMMARY | 2019-12-12 17:39 | XMS REPORT ---
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 10-11 Prashanth [id number] Legal Legal Diagnosis Active Antonio blindness, blindness, 10-11 Prashanth as defined as defined [id number] [place] 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 Prashanth and and 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 pain [place] 09:10: [id number] Respiratory dyspnea Respirator Active 2018-10 [facility] present y [place] 09:10: [id number] 00 Endo/Donato anti-coagul Endo/Donato Active 2018-10 Maria ation [place] therapy 09:10: [id number] 00 Sensory impaired Sensory Active 2018-10 [facility] vision [place] 09:10: [id number] 00 Sensory impaired Sensory Active 2018-10 [facility] hearing [place] 09:10: [id number] 00 Integument skin Integument Active 2018-10 Maria integrity [place] risk 09:10: [id number] 00 Nutrition nutritional Nutrition Active 2018-10 Maria restriction [place] s 09:10: [id number] 00 Elimination urinary Eliminatio Active 2018-10 Maria incontinenc n [place] e 09:10: [id number] 00 Neuro confusion Neuro/Emot Active 2018-10 Maria present ion [place] 09:10: [id number] 00 Neuro anxiety Neuro/Emot Active 2018-10 Maria present ion [place] 09:10: [id number] 00 Neuro impaired Neuro/Emot Active 2018-10 Maria decision-ma ion [place] christiano 09:10: [id number] 00 Neuro psychiatric Neuro/Emot Active 2018-10 Maria problems ion [place] 09:10: [id number] 00 Neuro memory Neuro/Emot Active 2018-10 Maria deficit ion [place] needing 09:10: [id number] supervision 00 Activity ADL Activity Active 2018-10 Maria assistance [place] required 09:10: [id number] 00 Activity self-care Activity Active 2018-10 Maria deficit [place] 09:10: [id number] 00 Safety cannot be Safety Active 2018-10 Maria left alone [place] 09:10: [id number] 00 Safety fall risk Safety Active 2018-10 Maria factor [place] present 09:10: [id number] 00 Safety risk for Safety Active 2018-10 Maria hospitaliza [place] tion 09:10: [id number] 00 Medication oral med Meds Active 2018-10 Maria assistance [place] required 09:10: [id number] 00 Medication injectable Meds Active 2018-10 Maria med [place] assistance 09:10: [id number] required 00 Musculoskel transfer Musculoske Active 2018-10 Maria etal assistance letal [place] required 09:10: [id number] 00 Musculoskel requires Musculoske Active 2018-10 Maria etal human letal [place] assist to 09:10: [id number] leave home 00 Safety can be left Safety Active 2018-10 Antonio alone for Prashanth only short 10:30: [id number] periods 00 Bed transfer PT/OT: Bed Active 2018-10 Antonio Mobility/Tr deficit: Mobility/T 2- Prashanth ansfer sit/stand ransfer 10:30: [id number] 00 Bed transfer PT/OT: Bed Active 2018-10 Antonio Mobility/Tr deficit: Mobility/T 2- Prashanth caylafer toilet/comm ransfer 10:30: [id number] ode 00 Bed transfer PT/OT: Bed Active 2018-10 Antonio Mobility/Tr deficit: Mobility/T 2- Prashanth ansfer shower/tub ransfer 10:30: [id number] 00 Bed knowledge/s PT/OT: Bed Active 2018-10 Antonio Mobility/Tr kill Mobility/T Prashanth ansfer deficit: pt ransfer 10:30: [id number] 00 Bed bed PT/OT: Bed Active 2018-10 Antonio Mobility/Tr mobility Mobility/T Prashanth ansfer deficit ransfer 10:30: [id number] 00 Gait/Locomo gait PT/OT: Active 2018-10 Antonio tion assistive Gait/Locom 2- Prashanth problems device otion 10:30: [id number] present 00 Gait/Locomo knowledge/s PT/OT: Active 2018-10 Antonio tion kill Gait/Locom - Prashanth problems deficit: pt otion 10:30: [id number] 00 Gait/Locomo gait PT/OT: Active 2018-10 Antonio tion deficit Gait/Locom -31 Prashanth problems otion 10:30: [id number] 00 Allergies, Adverse Reactions, Alerts Allergy Allergy Status Severity Reaction(s) Onset Inactive Treating Comments Name Type Date Date Clinician PCN Unknown Active Unknown Reaction 2018-06 Florencia Unknown -01 (Francisco Javier) Ellen [id number] Medications Ordered Filled Start Stop Current Ordering Indication Dosage Frequency Signature Comments Components Medication Medication Date Date Medication? Clinician (SIG) Name Name gabapentin gabapentin 2018-10 Yes Breiman Unknown Unknown 300 mg 300 mg Jay CLAUDIO capsule capsule sertraline sertraline 2018-10 Yes Breiman Unknown Unknown 50 mg 50 mg Jay CLAUDIO tablet tablet carbidopa carbidopa 2018-10 Yes Breiman Unknown Unknown 25 25 Jay CLAUDIO mg-levodopa mg-levodopa 100 mg 100 mg tablet tablet Eliquis 2.5 Eliquis 2.5 2018-10 Yes Breiman Unknown Unknown mg tablet mg tablet Jay CLAUDIO Gocovri 137 Gocovri 137 2018-10 Yes Breiman Unknown Unknown mg mg Jay CLAUDIO capsule,ext capsule,ext ended ended release release fludrocorti fludrocorti 2018-10 Yes Breiman Unknown Unknown sone 0.1 mg sone 0.1 mg Jay CLAUDIO tablet tablet multivitami multivitami 2018-10 Yes Breiman Unknown Unknown n capsule n capsule Jay CLAUDIO Calcium Calcium 2018-10 Yes Truptiiman Unknown Unknown Citrate Citrate Jay CLAUDIO 630mg 630mg Vital Signs Vital Name Observation Time Observation Value Comments SYSTOLIC mm[Hg] 2019-10-23 18:09:51 120 mm[Hg] mm[Hg] Method: Sit SYSTOLIC mm[Hg] 2019-10-10 18:09:38 90 mm[Hg] mm[Hg] Method: Stand DIASTOLIC mm[Hg] 2019-10-23 18:09:51 60 mm[Hg] mm[Hg] Method: Sit DIASTOLIC mm[Hg] 2019-10-10 18:09:38 64 mm[Hg] mm[Hg] Method: Stand PULSE 2019-10-23 18:09:51 60 /min /min RESP RATE 2019-10-10 18:09:38 16 /min /min TEMP 2019-10-23 18:09:51 98.0 [degF] Procedures This patient has no known procedures. Results This patient has no known results.
--- OUTSIDE RECORDS SUMMARY | 2019-12-12 17:39 | XMS REPORT ---
:1930 Author Organization [facility] Care Team Providers Name Role Phone Unavailable Unavailable Unavailable Problems Condition Condition Condition Status Onset Resolution Last Treating Comments Name Details Category Date Date Treatment Clinician Date Parkinson's Parkinson's Diagnosis Active Antonio disease disease 10-11 Prashanth [id number] Drug Drug Diagnosis Active Antonio induced induced 10-11 Prashanth subacute subacute [id number] dyskinesia dyskinesia Orthostatic Orthostatic Diagnosis Active Antonio hypotension hypotension 10-11 Prashanth [id number] Legal Legal Diagnosis Active Antonio blindness, blindness, 10-11 Prashanth as defined as defined [id number] [place] 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 Prashanth and and [id number] 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 pain [place] 09:10: [id number] 00 Respiratory dyspnea Respirator Active 2018-10 [facility] present y [place] 09:10: [id number] 00 Endo/Donato anti-coagul Endo/Donato Active 2018-10 Maria ation [place] therapy 09:10: [id number] 00 Sensory impaired Sensory Active 2018-10 [facility] vision [place] 09:10: [id number] 00 Sensory impaired Sensory Active 2018-10 [facility] hearing [place] 09:10: [id number] 00 Integument skin Integument Active 2018-10 Maria integrity [place] risk 09:10: [id number] 00 Nutrition nutritional Nutrition Active 2018-10 Maria restriction [place] s 09:10: [id number] 00 Elimination urinary Eliminatio Active 2018-10 Maria incontinenc n [place] e 09:10: [id number] 00 Neuro confusion Neuro/Emot Active 2018-10 Maria present ion [place] 09:10: [id number] 00 Neuro anxiety Neuro/Emot Active 2018-10 Maria present ion [place] 09:10: [id number] 00 Neuro impaired Neuro/Emot Active 2018-10 Maria decision-ma ion [place] christiano 09:10: [id number] 00 Neuro psychiatric Neuro/Emot Active 2018-10 Mraia problems ion [place] 09:10: [id number] 00 Neuro memory Neuro/Emot Active 2018-10 Maria deficit ion [place] needing 09:10: [id number] supervision 00 Activity ADL Activity Active 2018-10 Maria assistance [place] required 09:10: [id number] 00 Activity self-care Activity Active 2018-10 Maria deficit [place] 09:10: [id number] 00 Safety cannot be Safety Active 2018-10 Maria left alone [place] 09:10: [id number] 00 Safety fall risk Safety Active 2018-10 Maria factor [place] present 09:10: [id number] 00 Safety risk for Safety Active 2018-10 Maria hospitaliza [place] tion 09:10: [id number] 00 Medication oral med Meds Active 2018-10 Maria assistance [place] required 09:10: [id number] 00 Medication injectable Meds Active 2018-10 Maria med [place] assistance 09:10: [id number] required 00 Musculoskel transfer Musculoske Active 2018-10 Maria etal assistance letal [place] required 09:10: [id number] 00 Musculoskel requires Musculoske Active 2018-10 Maria etal human letal [place] assist to 09:10: [id number] leave home 00 Safety can be left Safety Active 2018-10 Antonio alone for Prashanth only short 10:30: [id number] periods 00 Bed transfer PT/OT: Bed Active 2018-10 Antonio Mobility/Tr deficit: Mobility/T 2- Prashanth ansfer sit/stand ransfer 10:30: [id number] 00 Bed transfer PT/OT: Bed Active 2018-10 Antonio Mobility/Tr deficit: Mobility/T 2- Prashanth ansfer toilet/comm ransfer 10:30: [id number] ode 00 Bed transfer PT/OT: Bed Active 2018-10 Antonio Mobility/Tr deficit: Mobility/T 2- Prashanth ansfer shower/tub ransfer 10:30: [id number] 00 Bed knowledge/s PT/OT: Bed Active 2018-10 Antonio Mobility/Tr kill Mobility/T Prashanth ansfer deficit: pt ransfer 10:30: [id number] 00 Bed bed PT/OT: Bed Active 2018-10 Antonio Mobility/Tr mobility Mobility/T - Prashanth ansfer deficit ransfer 10:30: [id number] 00 Gait/Locomo gait PT/OT: Active 2018-10 Antonio tion assistive Gait/Locom 2-31 Prashanth problems device otion 10:30: [id number] present 00 Gait/Locomo knowledge/s PT/OT: Active 2018-10 Antonio tion kill Gait/Locom 2- Prashanth problems deficit: pt otion 10:30: [id number] 00 Gait/Locomo gait PT/OT: Active 2018-10 Antonio tion deficit Gait/Locom 2-31 Prashanth problems otion 10:30: [id number] 00 Allergies, Adverse Reactions, Alerts Allergy Allergy Status Severity Reaction(s) Onset Inactive Treating Comments Name Type Date Date Clinician PCN Unknown Active Unknown Reaction 2018-06 Florencia Unknown -01 (Francisco Javier) Ellen [id number] Medications Ordered Filled Start Stop Current Ordering Indication Dosage Frequency Signature Comments Components Medication Medication Date Date Medication? Clinician (SIG) Name Name gabapentin gabapentin 2018-10- Yes Breiman Unknown Unknown 300 mg 300 mg 11-02 Jay CLAUDIO capsule capsule sertraline sertraline 2018-10- Yes Breiman Unknown Unknown 50 mg 50 mg 11-02 Jay CLAUDIO tablet tablet carbidopa carbidopa 2018-10- Yes Breiman Unknown Unknown 25 25 11-02 Jay CLAUDIO mg-levodopa mg-levodopa 100 mg 100 mg tablet tablet Eliquis 2.5 Eliquis 2.5 2018-10- Yes Breiman Unknown Unknown mg tablet mg tablet 11-02 Jay CLAUDIO Gocovri 137 Gocovri 137 2018-10- Yes Breiman Unknown Unknown mg mg 11-02 Jay CLAUDIO capsule,ext capsule,ext ended ended release release fludrocorti fludrocorti 2018-10- Yes Breiman Unknown Unknown sone 0.1 mg sone 0.1 mg 11-02 Jay CLAUDIO tablet tablet multivitami multivitami 2018-10- Yes Breiman Unknown Unknown n capsule n capsule 11-02 Jay CLAUDIO Calcium Calcium 2018-10- Yes Breiman Unknown Unknown Citrate Citrate 11-02 Jay CLAUDIO 630mg 630mg Vital Signs Vital Name Observation Time Observation Value Comments SYSTOLIC mm[Hg] 2019-11-02 18:10:01 120 mm[Hg] mm[Hg] Method: Sit SYSTOLIC mm[Hg] 2019-10-10 18:09:38 90 mm[Hg] mm[Hg] Method: Stand DIASTOLIC mm[Hg] 2019-11-02 18:10:01 60 mm[Hg] mm[Hg] Method: Sit DIASTOLIC mm[Hg] 2019-10-10 18:09:38 64 mm[Hg] mm[Hg] Method: Stand PULSE 2019-11-02 18:10:01 68 /min /min TEMP 2019-11-02 18:10:01 98.0 [degF] Procedures This patient has no known procedures. Results This patient has no known results.
--- OUTSIDE RECORDS SUMMARY | 2019-12-12 17:39 | XMS REPORT | Continuity of Care Document ---
:1930 External Reference #:[id number] Author Name Jhonny Nolen M.D. (transmitted by agent of provider Anika Burch) Address [address], [place] [address] Care Team Providers Name Role Phone Jay Delacruz MD - Family Medicine Care Team Information Program Director [employer] Problems Active Problems Provider Date Parkinson's disease Jhonny Nolen M.D. Onset: 01/07/2018 Drug-induced tardive dystonia Jhonny Nolen M.D. 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 Onset: 03/10/2018 Social History Type Date Description Comments Sex Unknown ETOH Use Denies alcohol use Tobacco Use Start: Unknown Light tobacco smoker (10 or fewer cigarettes/day) Recreational Drug Use Denies Drug Use Tobacco Use Start: Unknown End: Patient is a former smoker Unknown Smoking Status Reviewed: 11/06/19 Patient is a former smoker Exercise Type/Frequency Exercises regularly Allergies, Adverse Reactions, Alerts Active Allergies Reaction Severity Comments Date Penicillin 07/08/2017 Medications Active Medications SIG Qnty Indications Ordering Date Provider Gabapentin 1 by mouth 180caps Mayco Shin, 10/31/2018 300mg Capsules twice a day N.P. Carbidopa-Levodopa ER take 1 by mouth 180tabs G20 Mayco Shin, 2017 twice a day. N.P. 50-200mg Tablets ER Gocovri take 1 capsule 90caps G20 Mayco Shin, 01/07/2018 137mg Caps ER 24HR by mouth at N.P. bedtime Fludrocortisone Acetate 1 by mouth 90tabs Mayco Shin, every day N.P. 0.1mg Tablets Sertraline HCL one and a half Unknown 50mg Tablets tabs by mouth every day Eliquis 1 by mouth Unknown 2.5mg Tablets twice a day Doxycycline Hyclate 1 by mouth Unknown 20mg twice a day Tablets Calcium 600 2 by mouth Unknown 600mg Tablets every day Blink Tears Eye Drops Unknown Immunizations Description No Information Available Vital Signs Date Vital Result Comment 11/06/2019 4:14pm Height 60 inches 5'0" Weight 115.00 lb Heart Rate 72 /min BP Systolic 112 mmHg BP Diastolic 72 mmHg BMI (Body Mass Index) 22.5 kg/m2 07/28/2019 3:57pm Height 60 inches 5'0" Weight 111.00 lb Heart Rate 84 /min BP Systolic 126 mmHg BP Diastolic 24 mmHg BMI (Body Mass Index) 21.7 kg/m2 Results Description No Information Available Procedures Date Code Description Status 02/10/2018 [id number] Diabetic Retinal Eye Exam Completed Medical Devices Description No Information Available Encounters Type Date Location Provider Dx Diagnosis Office Visit 11/06/2019 [facility] Narcisa Fierro Parkinson' s 4:00[facility] [place] disease G24.01 Drug induced subacute dyskinesia F41.9 Anxiety disorder, unspecified Office Visit 07/28/2019 3:45p [facility] Narcisa Fierro Parkinson's Services [facility] [place] disease G24.01 Drug induced subacute dyskinesia F41.9 Anxiety disorder, unspecified Assessments Date Code Description Provider 11/06/2019 [facility] Parkinson's disease Jhonny Nolen M.D. 11/06/2019 G24.01 Drug induced subacute dyskinesia Jhonny Nolen M.D. 11/06/2019 F41.9 Anxiety disorder, unspecified Jhonny Nolen M.D. 07/28/2019 [facility] Parkinson's disease Jhonny Nolen M.D. 07/28/2019 G24.01 Drug induced subacute dyskinesia Jhonny Nolen M.D. 07/28/2019 F41.9 Anxiety disorder, unspecified Jhonny Nolen M.D. Plan of Treatment Future Appointment(s):03/22/2020 4:00 pm - Jhonny Nolen M.D. at [facility]11/06/2019 - Jhonny Nolen M.D.G20 Parkinson's diseaseNew Therapy:Physical TherapyFollow up:4 puajpsE19.01 Drug induced subacute kwzjknqutwL86.9 Anxiety disorder, unspecified Functional Status Description No Information Available Mental Status Description No Information Available Referrals Description No Information Available
--- OUTSIDE RECORDS SUMMARY | 2019-12-12 17:39 | XMS REPORT ---
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 10-11 Prashanth [id number] Drug Drug Diagnosis Active Antonio induced induced 10-11 Prashanth subacute subacute [id number] dyskinesia dyskinesia Orthostatic Orthostatic Diagnosis Active Antonio hypotension hypotension 10-11 Prashanth [id number] Legal Legal Diagnosis Active Antonio blindness, blindness, 10-11 Prashanth as defined as defined [id number] [place] 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 Prashanth and and [id number] 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 10-11 Prashanth [id number] Anxiety Anxiety Diagnosis Active Antonio disorder, disorder, Prashanth unspecified unspecified 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) (current) Prashanth use of use of [id number] anticoagula anticoagula nts nts Personal Personal Diagnosis Active Antonio history of history of Prashanth nicotine nicotine [id number] dependence dependence Pain frequent Pain Mgmt Active 2018-10 [facility] pain [place] 09:10: [id number] 00 Respiratory dyspnea Respirator Active 2018-10 [facility] present y [place] 09:10: [id number] 00 Endo/Donato anti-coagul Endo/Donato Active 2018-10 Maria ation [place] therapy 09:10: [id number] 00 Sensory impaired Sensory Active 2018-10 [facility] vision [place] 09:10: [id number] 00 Sensory impaired Sensory Active 2018-10 [facility] hearing [place] 09:10: [id number] 00 Integument skin Integument Active 2018-10 Maria integrity [place] risk 09:10: [id number] 00 Nutrition nutritional Nutrition Active 2018-10 Maria restriction [place] s 09:10: [id number] 00 Elimination urinary Eliminatio Active 2018-10 Maria incontinenc n [place] e 09:10: [id number] 00 Neuro confusion Neuro/Emot Active 2018-10 Maria present ion [place] 09:10: [id number] 00 Neuro anxiety Neuro/Emot Active 2018-10 Maria present ion [place] 09:10: [id number] 00 Neuro impaired Neuro/Emot Active 2018-10 Maria decision-ma ion [place] christiano 09:10: [id number] 00 Neuro psychiatric Neuro/Emot Active 2018-10 Maria problems ion [place] 09:10: [id number] 00 Neuro memory Neuro/Emot Active 2018-10 Maria deficit ion [place] needing 09:10: [id number] supervision 00 Activity ADL Activity Active 2018-10 Maria assistance [place] required 09:10: [id number] 00 Activity self-care Activity Active 2018-10 Maria deficit [place] 09:10: [id number] 00 Safety cannot be Safety Active 2018-10 Maria left alone [place] 09:10: [id number] 00 Safety fall risk Safety Active 2018-10 Maria factor [place] present 09:10: [id number] 00 Safety risk for Safety Active 2018-10 Maria hospitaliza [place] tion 09:10: [id number] 00 Medication oral med Meds Active 2018-10 Maria assistance [place] required 09:10: [id number] 00 Medication injectable Meds Active 2018-10 Maria med [place] assistance 09:10: [id number] required 00 Musculoskel transfer Musculoske Active 2018-10 Maria etal assistance letal [place] required 09:10: [id number] 00 Musculoskel requires Musculoske Active 2018-10 Maria etal human letal [place] assist to 09:10: [id number] leave home 00 Safety can be left Safety Active 2018-10 Antonio alone for Prashanth only short 10:30: [id number] periods 00 Bed transfer PT/OT: Bed Active 2018-10 Antonio Mobility/Tr deficit: Mobility/T 2- Prashanth ansfer sit/stand ransfer 10:30: [id number] 00 Bed transfer PT/OT: Bed Active 2018-10 Antonio Mobility/Tr deficit: Mobility/T 2- Prashanth caylafer toilet/comm ransfer 10:30: [id number] ode 00 Bed transfer PT/OT: Bed Active 2018-10 Antonio Mobility/Tr deficit: Mobility/T 2- Prashanth ansfer shower/tub ransfer 10:30: [id number] 00 Bed knowledge/s PT/OT: Bed Active 2018-10 Antonio Mobility/Tr kill Mobility/T Prashanth ansfer deficit: pt ransfer 10:30: [id number] 00 Bed bed PT/OT: Bed Active 2018-10 Antonio Mobility/Tr mobility Mobility/T Prashanth ansfer deficit ransfer 10:30: [id number] 00 Gait/Locomo gait PT/OT: Active 2018-10 Antonio tion assistive Gait/Locom 2- Prashanth problems device otion 10:30: [id number] present 00 Gait/Locomo knowledge/s PT/OT: Active 2018-10 Antonio tion kill Gait/Locom - Prashanth problems deficit: pt otion 10:30: [id number] 00 Gait/Locomo gait PT/OT: Active 2018-10 Antonio tion deficit Gait/Locom -31 Prashanth problems otion 10:30: [id number] 00 Allergies, Adverse Reactions, Alerts Allergy Allergy Status Severity Reaction(s) Onset Inactive Treating Comments Name Type Date Date Clinician PCN Unknown Active Unknown Reaction 2018-06 Florencia Unknown -01 (Francisco Javier) Ellen [id number] Medications Ordered Filled Start Stop Current Ordering [...] Observation Time Observation Value Comments SYSTOLIC mm[Hg] 2019-10-30 18:09:58 120 mm[Hg] mm[Hg] Method: Sit SYSTOLIC mm[Hg] 2019-10-10 18:09:38 90 mm[Hg] mm[Hg] Method: Stand DIASTOLIC mm[Hg] 2019-10-30 18:09:58 60 mm[Hg] mm[Hg] Method: Sit DIASTOLIC mm[Hg] 2019-10-10 18:09:38 64 mm[Hg] mm[Hg] Method: Stand PULSE 2019-10-30 18:09:58 60 /min /min RESP RATE 2019-10-10 18:09:38 16 /min /min TEMP 2019-10-30 18:09:58 98.0 [degF] Procedures This patient has no known procedures. Results This patient has no known results.
--- OUTSIDE RECORDS SUMMARY | 2019-12-12 17:39 | XMS REPORT ---
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 10-11 Prashanth [id number] Drug Drug Diagnosis Active Antonio induced induced 10-11 Prashanth subacute subacute [id number] dyskinesia dyskinesia Orthostatic Orthostatic Diagnosis Active Antonio hypotension hypotension 10-11 Prashanth [id number] Legal Legal Diagnosis Active Antonio blindness, blindness, 10-11 Prashanth as defined as defined [id number] [place] 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 Prashanth and and [id number] 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 10-11 Prashanth [id number] Anxiety Anxiety Diagnosis Active Antonio disorder, disorder, Prashanth unspecified unspecified 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 pain [place] 09:10: [id number] 00 Respiratory dyspnea Respirator Active 2018-10 [facility] present y [place] 09:10: [id number] 00 Endo/Donato anti-coagul Endo/Donato Active 2018-10 Am[facility] ation [place] therapy 09:10: [id number] 00 Sensory impaired Sensory Active 2018-10 [facility] vision [place] 09:10: [id number] 00 Sensory impaired Sensory Active 2018-10 [facility] hearing [place] 09:10: [id number] 00 Integument skin Integument Active 2018-10 Maria integrity [place] risk 09:10: [id number] 00 Nutrition nutritional Nutrition Active 2018-10 Maria restriction [place] s 09:10: [id number] 00 Elimination urinary Eliminatio Active 2018-10 Maria incontinenc n [place] e 09:10: [id number] 00 Neuro confusion Neuro/Emot Active 2018-10 Maria present ion [place] 09:10: [id number] 00 Neuro anxiety Neuro/Emot Active 2018-10 Maria present ion [place] 09:10: [id number] 00 Neuro impaired Neuro/Emot Active 2018-10 Maria decision-ma ion [place] christiano 09:10: [id number] 00 Neuro psychiatric Neuro/Emot Active 2018-10 Maria problems ion [place] 09:10: [id number] 00 Neuro memory Neuro/Emot Active 2018-10 Maria deficit ion [place] needing 09:10: [id number] supervision 00 Activity ADL Activity Active 2018-10 Maria assistance [place] required 09:10: [id number] 00 Activity self-care Activity Active 2018-10 Maria deficit [place] 09:10: [id number] 00 Safety cannot be Safety Active 2018-10 Maria left alone [place] 09:10: [id number] 00 Safety fall risk Safety Active 2018-10 Maria factor [place] present 09:10: [id number] 00 Safety risk for Safety Active 2018-10 Maria hospitaliza [place] tion 09:10: [id number] 00 Medication oral med Meds Active 2018-10 Maria assistance [place] required 09:10: [id number] 00 Medication injectable Meds Active 2018-10 Maria med [place] assistance 09:10: [id number] required 00 Musculoskel transfer Musculoske Active 2018-10 Maria etal assistance letal [place] required 09:10: [id number] 00 Musculoskel requires Musculoske Active 2018-10 Maria etal human letal [place] assist to 09:10: [id number] leave home 00 Safety can be left Safety Active 2018-10 Antonio alone for Prashanth only short 10:30: [id number] periods 00 Bed transfer PT/OT: Bed Active 2018-10 Antonio Mobility/Tr deficit: Mobility/T 2- Prashanth ansfer sit/stand ransfer 10:30: [id number] 00 Bed transfer PT/OT: Bed Active 2018-10 Antonio Mobility/Tr deficit: Mobility/T 2- Prashanth caylafer toilet/comm ransfer 10:30: [id number] ode 00 Bed transfer PT/OT: Bed Active 2018-10 Antonio Mobility/Tr deficit: Mobility/T 2- Prahsanth ansfer shower/tub ransfer 10:30: [id number] 00 Bed knowledge/s PT/OT: Bed Active 2018-10 Antonio Mobility/Tr kill Mobility/T Prashanth ansfer deficit: pt ransfer 10:30: [id number] 00 Bed bed PT/OT: Bed Active 2018-10 Antonio Mobility/Tr mobility Mobility/T Prashanth ansfer deficit ransfer 10:30: [id number] 00 Gait/Locomo gait PT/OT: Active 2018-10 Antonio tion assistive Gait/Locom 2- Prashanth problems device otion 10:30: [id number] present 00 Gait/Locomo knowledge/s PT/OT: Active 2018-10 Antonio tion kill Gait/Locom - Prashanth problems deficit: pt otion 10:30: [id number] 00 Gait/Locomo gait PT/OT: Active 2018-10 Antonio tion deficit Gait/Locom -31 Prashanth problems otion 10:30: [id number] 00 Allergies, Adverse Reactions, Alerts Allergy Allergy Status Severity Reaction(s) Onset Inactive Treating Comments Name Type Date Date Clinician PCN Unknown Active Unknown Reaction 2018-06 Florencia Unknown -01 (Francisco Javier) Ellen [id number] Medications Ordered Filled Start Stop Current Ordering [...] Observation Time Observation Value Comments SYSTOLIC mm[Hg] 2019-10-26 18:09:54 120 mm[Hg] mm[Hg] Method: Sit SYSTOLIC mm[Hg] 2019-10-10 18:09:38 90 mm[Hg] mm[Hg] Method: Stand DIASTOLIC mm[Hg] 2019-10-26 18:09:54 60 mm[Hg] mm[Hg] Method: Sit DIASTOLIC mm[Hg] 2019-10-10 18:09:38 64 mm[Hg] mm[Hg] Method: Stand PULSE 2019-10-26 18:09:54 60 /min /min RESP RATE 2019-10-10 18:09:38 16 /min /min TEMP 2019-10-26 18:09:54 97.9 [degF] Procedures This patient has no known procedures. Results This patient has no known results.
--- OUTSIDE RECORDS SUMMARY | 2019-12-12 17:39 | XMS REPORT ---
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 10-11 Prashanth [id number] Legal Legal Diagnosis Active Antonio blindness, blindness, 10-11 Prashanth as defined as defined [id number] [place] 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 Prashanth and and 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 10-11 Prashanth [id number] Anxiety Anxiety Diagnosis Active Antonio disorder, disorder, Prashanth unspecified unspecified 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) (current) Prashanth use of use of [id number] anticoagula anticoagula nts nts Personal Personal Diagnosis Active Antonio history of history of Prashanth nicotine nicotine [id number] dependence dependence Pain frequent Pain Mgmt Resolve 2018-102019-11-02 Maria pain d 12:45:00 [place] 09:10: [id number] 00 Respiratory dyspnea Respirator Resolve 2018-102019-11-02 Maria present y d 12:45:00 [place] 09:10: [id number] 00 Endo/Donato anti-coagul Endo/Donato Resolve 2018-102019-11-02 Maria ation d 12:45:00 [place] therapy 09:10: [id number] 00 Sensory impaired Sensory Resolve 2018-102019-11-02 Maria vision d 12:45:00 [place] 09:10: [id number] 00 Sensory impaired Sensory Resolve 2018-102019-11-02 Maria hearing d 12:45:00 [place] 09:10: [id number] 00 Integument skin Integument Resolve 2018-102019-11-02 Maria integrity d 12:45:00 [place] risk 09:10: [id number] 00 Nutrition nutritional Nutrition Resolve 2018-102019-11-02 Maria restriction d 12:45:00 Emily s 09:10: [id number] 00 Elimination urinary Eliminatio Resolve 2018-102019-11-02 Maria incontinenc n d 12:45:00 [place] e 09:10: [id number] 00 Neuro confusion Neuro/Emot Resolve 2018-102019-11-02 Maria present ion d 12:45:00 [place] 09:10: [id number] 00 Neuro anxiety Neuro/Emot Resolve 2018-102019-11-02 Maria present ion d 12:45:00 [place] 09:10: [id number] 00 Neuro impaired Neuro/Emot Resolve 2018-102019-11-02 Maria decision-ma ion d 12:45:00 Emilyflavia alvarado 09:10: [id number] 00 Neuro psychiatric Neuro/Emot Resolve 2018-102019-11-02 Maria problems ion d 12:45:00 [place] 09:10: [id number] 00 Neuro memory Neuro/Emot Resolve 2018-102019-11-02 Maria deficit ion d 12:45:00 [place] needing 09:10: [id number] supervision 00 Activity ADL Activity Resolve 2018-102019-11-02 Maria assistance d 12:45:00 [place] required 09:10: [id number] 00 Activity self-care Activity Resolve 2018-102019-11-02 Maria deficit d 12:45:00 [place] 09:10: [id number] 00 Safety cannot be Safety Resolve 2018-102019-11-02 Maria left alone d 12:45:00 [place] 09:10: [id number] 00 Safety fall risk Safety Resolve 2018-102019-11-02 Maria factor d 12:45:00 [place] present 09:10: [id number] 00 Safety risk for Safety Resolve 2018-102019-11-02 Maria hospitaliza d 12:45:00 [place] tion 09:10: [id number] 00 Medication oral med Meds Resolve 2018-102019-11-02 Maria assistance d 12:45:00 [place] required 09:10: [id number] 00 Medication injectable Meds Resolve 2018-102019-11-02 Maria med d 12:45:00 [place] assistance 09:10: [id number] required 00 Musculoskel transfer Musculoske Resolve 2018-102019-11-02 Maria etal assistance letal d 12:45:00 Emily required 09:10: [id number] 00 Musculoskel requires Musculoske Resolve 2018-102019-11-02 Maria etal human letal d 12:45:00 [place] assist to 09:10: [id number] leave home 00 Safety can be left Safety Resolve 2018-102019-11-02 Antonio alone for d 12:45:00 Prashanth jennings 10:30: [id number] periods 00 Bed transfer PT/OT: Bed Resolve 2018-102019-11-02 Antonio Mobility/Tr deficit: Mobility/T d 12:45:00 Prashanth altman sit/stand ransfer 10:30: [id number] 00 Bed transfer PT/OT: Bed Resolve 2018-102019-11-02 Antonio Mobility/Tr deficit: Mobility/T d 12:45:00 Prashanth altman toilet/comm ransfer 10:30: [id number] ode 00 Bed transfer PT/OT: Bed Resolve 2018-102019-11-02 Antonio Mobility/Tr deficit: Mobility/T d 12:45:00 Prashanth altman shower/tub ransfer 10:30: [id number] 00 Bed knowledge/s PT/OT: Bed Resolve 2018-102019-11-02 Antonio Mobility/Tr kill Mobility/T d 12:45:00 Prashanth altman deficit: pt ransfer 10:30: [id number] 00 Bed bed PT/OT: Bed Resolve 2018-102019-11-02 Antonio Mobility/Tr mobility Mobility/T d 12:45:00 Prashanth ansfer deficit ransfer 10:30: [id number] 00 Gait/Locomo gait PT/OT: Resolve 2018-102019-11-02 Antonio tion assistive Gait/Locom d 12:45:00 Prashanth problems device otion 10:30: [id number] present 00 Gait/Locomo knowledge/s PT/OT: Resolve 2018-102019-11-02 Antonio francison kill Gait/Locom d 12:45:00 Prashanth problems deficit: pt otion 10:30: [id number] 00 Gait/Locomo gait PT/OT: Resolve 2018-102019-11-02 Antonio tion deficit Gait/Locom d 12:45:00 Prashanth problems otion 10:30: [id number] 00 Allergies, Adverse Reactions, Alerts Allergy Allergy Status Severity Reaction(s) Onset Inactive Treating Comments Name Type Date Date Clinician PCN Unknown Active Unknown Reaction 2018-06 Florencia Unknown - (Francisco Javier) Ellen [id number] Medications Ordered Filled Start Stop Current Ordering [...]
--- OUTSIDE RECORDS SUMMARY | 2019-12-12 17:39 | XMS REPORT ---
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 10-11 Prashanth [id number] Legal Legal Diagnosis Active Antonio blindness, blindness, 10-11 Prashanth as defined as defined [id number] [place] 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 Prashanth and and [id number] 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 10-11 Prashanth [id number] Anxiety Anxiety Diagnosis Active Antonio disorder, disorder, Prashanth unspecified unspecified [id number] long term long term Diagnosis Active Antonio (current) (current) Prashanth use of use of [id number] anticoagula anticoagula nts nts Personal Personal Diagnosis Active Antonio history of history of Prashanth nicotine nicotine [id number] dependence dependence Pain frequent Pain Mgmt Active 2018-10 [facility] pain [place] 09:10: [id number] 00 Respiratory dyspnea Respirator Active 2018-10 [facility] present y [place] 09:10: [id number] 00 Endo/Donato anti-coagul Endo/Donato Active 2018-10 Maria ation [place] therapy 09:10: [id number] 00 Sensory impaired Sensory Active 2018-10 [facility] vision [place] 09:10: [id number] 00 Sensory impaired Sensory Active 2018-10 [facility] hearing [place] 09:10: [id number] 00 Integument skin Integument Active 2018-10 Maria integrity [place] risk 09:10: [id number] 00 Nutrition nutritional Nutrition Active 2018-10 Maria restriction [place] s 09:10: [id number] 00 Elimination urinary Eliminatio Active 2018-10 Maria incontinenc n [place] e 09:10: [id number] 00 Neuro confusion Neuro/Emot Active 2018-10 Maria present ion [place] 09:10: [id number] 00 Neuro anxiety Neuro/Emot Active 2018-10 Maria present ion [place] 09:10: [id number] 00 Neuro impaired Neuro/Emot Active 2018-10 Maria decision-ma ion [place] christiano 09:10: [id number] 00 Neuro psychiatric Neuro/Emot Active 2018-10 Maria problems ion [place] 09:10: [id number] 00 Neuro memory Neuro/Emot Active 2018-10 Maria deficit ion [place] needing 09:10: [id number] supervision 00 Activity ADL Activity Active 2018-10 Maria assistance [place] required 09:10: [id number] 00 Activity self-care Activity Active 2018-10 Maria deficit [place] 09:10: [id number] 00 Safety cannot be Safety Active 2018-10 Maria left alone [place] 09:10: [id number] 00 Safety fall risk Safety Active 2018-10 Maria factor [place] present 09:10: [id number] 00 Safety risk for Safety Active 2018-10 Maria hospitaliza [place] tion 09:10: [id number] 00 Medication oral med Meds Active 2018-10 Maria assistance [place] required 09:10: [id number] 00 Medication injectable Meds Active 2018-10 Maria med [place] assistance 09:10: [id number] required 00 Musculoskel transfer Musculoske Active 2018-10 Maria etal assistance letal [place] required 09:10: [id number] 00 Musculoskel requires Musculoske Active 2018-10 Maria etal human letal [place] assist to 09:10: [id number] leave home 00 Safety can be left Safety Active 2018-10 Antonio alone for Prashanth only short 10:30: [id number] periods 00 Bed transfer PT/OT: Bed Active 2018-10 Antonio Mobility/Tr deficit: Mobility/T 2- Prashanth ansfer sit/stand ransfer 10:30: [id number] 00 Bed transfer PT/OT: Bed Active 2018-10 Antonio Mobility/Tr deficit: Mobility/T 2- Prashanth caylafer toilet/comm ransfer 10:30: [id number] ode 00 Bed transfer PT/OT: Bed Active 2018-10 Antonio Mobility/Tr deficit: Mobility/T 2- Prashanth ansfer shower/tub ransfer 10:30: [id number] 00 Bed knowledge/s PT/OT: Bed Active 2018-10 Antonio Mobility/Tr kill Mobility/T Prashanth ansfer deficit: pt ransfer 10:30: [id number] 00 Bed bed PT/OT: Bed Active 2018-10 Antonio Mobility/Tr mobility Mobility/T Prashanth ansfer deficit ransfer 10:30: [id number] 00 Gait/Locomo gait PT/OT: Active 2018-10 Antonio tion assistive Gait/Locom 2- Prashanth problems device otion 10:30: [id number] present 00 Gait/Locomo knowledge/s PT/OT: Active 2018-10 Antonio tion kill Gait/Locom - Prashanth problems deficit: pt otion 10:30: [id number] 00 Gait/Locomo gait PT/OT: Active 2018-10 Antonio tion deficit Gait/Locom -31 Prashanth problems otion 10:30: [id number] 00 Allergies, Adverse Reactions, Alerts Allergy Allergy Status Severity Reaction(s) Onset Inactive Treating Comments Name Type Date Date Clinician PCN Unknown Active Unknown Reaction 2018-06 Florencia Unknown -01 (Francisco Javier) Ellen [id number] Medications Ordered Filled Start Stop Current Ordering [...]
--- OUTSIDE RECORDS SUMMARY | 2019-12-12 17:39 | XMS REPORT ---
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 Prashanth subacute subacute [id number] dyskinesia dyskinesia Orthostatic Orthostatic Diagnosis Active Antonio hypotension hypotension 10-11 Prashanth [id number] Legal Legal Diagnosis Active Antonio blindness, blindness, 10-11 Prashanth as defined as defined [id number] [place] 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 Prashanth and and [id number] 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 10-11 Prashanth [id number] Anxiety Anxiety Diagnosis Active Antonio disorder, disorder, Prashanth unspecified unspecified 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) (current) Prashanth use of use of [id number] anticoagula anticoagula nts nts Personal Personal Diagnosis Active Antonio history of history of Prashanth nicotine nicotine [id number] dependence dependence Pain frequent Pain Mgmt Active 2018-10 [facility] pain [place] 09:10: [id number] 00 Respiratory dyspnea Respirator Active 2018-10 [facility] present y [place] 09:10: [id number] 00 Endo/Donato anti-coagul Endo/Donato Active 2018-10 Maria ation [place] therapy 09:10: [id number] 00 Sensory impaired Sensory Active 2018-10 [facility] vision [place] 09:10: [id number] 00 Sensory impaired Sensory Active 2018-10 [facility] hearing [place] 09:10: [id number] 00 Integument skin Integument Active 2018-10 Maria integrity [place] risk 09:10: [id number] 00 Nutrition nutritional Nutrition Active 2018-10 Maria restriction [place] s 09:10: [id number] 00 Elimination urinary Eliminatio Active 2018-10 Maria incontinenc n [place] e 09:10: [id number] 00 Neuro confusion Neuro/Emot Active 2018-10 Maria present ion [place] 09:10: [id number] 00 Neuro anxiety Neuro/Emot Active 2018-10 Maria present ion [place] 09:10: [id number] 00 Neuro impaired Neuro/Emot Active 2018-10 Maria decision-ma ion [place] christiano 09:10: [id number] 00 Neuro psychiatric Neuro/Emot Active 2018-10 Maria problems ion [place] 09:10: [id number] 00 Neuro memory Neuro/Emot Active 2018-10 Maria deficit ion [place] needing 09:10: [id number] supervision 00 Activity ADL Activity Active 2018-10 Maria assistance [place] required 09:10: [id number] 00 Activity self-care Activity Active 2018-10 Maria deficit [place] 09:10: [id number] 00 Safety cannot be Safety Active 2018-10 Maria left alone [place] 09:10: [id number] 00 Safety fall risk Safety Active 2018-10 Maria factor [place] present 09:10: [id number] 00 Safety risk for Safety Active 2018-10 Maria hospitaliza [place] tion 09:10: [id number] 00 Medication oral med Meds Active 2018-10 Maria assistance [place] required 09:10: [id number] 00 Medication injectable Meds Active 2018-10 Maria med [place] assistance 09:10: [id number] required 00 Musculoskel transfer Musculoske Active 2018-10 Maria etal assistance letal [place] required 09:10: [id number] 00 Musculoskel requires Musculoske Active 2018-10 Maria etal human letal [place] assist to 09:10: [id number] leave home 00 Safety can be left Safety Active 2018-10 Antonio alone for Prashanth only short 10:30: [id number] periods 00 Bed transfer PT/OT: Bed Active 2018-10 Antonio Mobility/Tr deficit: Mobility/T 2- Prashanth ansfer sit/stand ransfer 10:30: [id number] 00 Bed transfer PT/OT: Bed Active 2018-10 Antonio Mobility/Tr deficit: Mobility/T 2- Prashanth caylafer toilet/comm ransfer 10:30: [id number] ode 00 Bed transfer PT/OT: Bed Active 2018-10 Antonio Mobility/Tr deficit: Mobility/T 2- Prashanth ansfer shower/tub ransfer 10:30: [id number] 00 Bed knowledge/s PT/OT: Bed Active 2018-10 Antonio Mobility/Tr kill Mobility/T Prashanth ansfer deficit: pt ransfer 10:30: [id number] 00 Bed bed PT/OT: Bed Active 2018-10 Antonio Mobility/Tr mobility Mobility/T Prashanth ansfer deficit ransfer 10:30: [id number] 00 Gait/Locomo gait PT/OT: Active 2018-10 Antonio tion assistive Gait/Locom 2- Prashanth problems device otion 10:30: [id number] present 00 Gait/Locomo knowledge/s PT/OT: Active 2018-10 Antonio tion kill Gait/Locom - Prashanth problems deficit: pt otion 10:30: [id number] 00 Gait/Locomo gait PT/OT: Active 2018-10 Antonio tion deficit Gait/Locom -31 Prashanth problems otion 10:30: [id number] 00 Allergies, Adverse Reactions, Alerts Allergy Allergy Status Severity Reaction(s) Onset Inactive Treating Comments Name Type Date Date Clinician PCN Unknown Active Unknown Reaction 2018-06 Florencia Unknown -01 (Francisco Javier) Ellen [id number] Medications Ordered Filled Start Stop Current Ordering [...] capsule Jay CLAUDIO Calcium Calcium 2018-10 Yes rTuptiiman Unknown Unknown Citrate Citrate Jay CLAUDIO 630mg [...]
--- OUTSIDE RECORDS SUMMARY | 2019-12-12 17:39 | XMS REPORT ---
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 10-11 Prashanth [id number] Legal Legal Diagnosis Active Antonio blindness, blindness, 10-11 Prashanth as defined as defined [id number] [place] 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 Prashanth and and [id number] 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 10-11 Prashanth [id number] Anxiety Anxiety Diagnosis Active Antonio disorder, disorder, Prashanth unspecified unspecified 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) (current) Prashanth use of use of [id number] anticoagula anticoagula nts nts Personal Personal Diagnosis Active Antonio history of history of Prashanth nicotine nicotine [id number] dependence dependence Pain frequent Pain Mgmt Active 2018-10 [facility] pain [place] 09:10: [id number] 00 Respiratory dyspnea Respirator Active 2018-10 [facility] present y [place] 09:10: [id number] 00 Endo/Donato anti-coagul Endo/Donato Active 2018-10 Maria ation [place] therapy 09:10: [id number] 00 Sensory impaired Sensory Active 2018-10 [facility] vision [place] 09:10: [id number] 00 Sensory impaired Sensory Active 2018-10 [facility] hearing [place] 09:10: [id number] 00 Integument skin Integument Active 2018-10 Maria integrity [place] risk 09:10: [id number] 00 Nutrition nutritional Nutrition Active 2018-10 Maria restriction [place] s 09:10: [id number] 00 Elimination urinary Eliminatio Active 2018-10 Maria incontinenc n [place] e 09:10: [id number] 00 Neuro confusion Neuro/Emot Active 2018-10 Maria present ion [place] 09:10: [id number] 00 Neuro anxiety Neuro/Emot Active 2018-10 Maria present ion [place] 09:10: [id number] 00 Neuro impaired Neuro/Emot Active 2018-10 Maria decision-ma ion [place] christiano 09:10: [id number] 00 Neuro psychiatric Neuro/Emot Active 2018-10 Maria problems ion [place] 09:10: [id number] 00 Neuro memory Neuro/Emot Active 2018-10 Maria deficit ion [place] needing 09:10: [id number] supervision 00 Activity ADL Activity Active 2018-10 Maria assistance [place] required 09:10: [id number] 00 Activity self-care Activity Active 2018-10 Maria deficit [place] 09:10: [id number] 00 Safety cannot be Safety Active 2018-10 Maria left alone [place] 09:10: [id number] 00 Safety fall risk Safety Active 2018-10 Maria factor [place] present 09:10: [id number] 00 Safety risk for Safety Active 2018-10 Maria hospitaliza [place] tion 09:10: [id number] 00 Medication oral med Meds Active 2018-10 Maria assistance [place] required 09:10: [id number] 00 Medication injectable Meds Active 2018-10 Maria med [place] assistance 09:10: [id number] required 00 Musculoskel transfer Musculoske Active 2018-10 Maria etal assistance letal [place] required 09:10: [id number] 00 Musculoskel requires Musculoske Active 2018-10 Maria etal human letal [place] assist to 09:10: [id number] leave home 00 Safety can be left Safety Active 2018-10 Antonio alone for Prashanth only short 10:30: [id number] periods 00 Bed transfer PT/OT: Bed Active 2018-10 Antonio Mobility/Tr deficit: Mobility/T 2- Prashanth ansfer sit/stand ransfer 10:30: [id number] 00 Bed transfer PT/OT: Bed Active 2018-10 Antonio Mobility/Tr deficit: Mobility/T 2- Prashanth caylafer toilet/comm ransfer 10:30: [id number] ode 00 Bed transfer PT/OT: Bed Active 2018-10 Antonio Mobility/Tr deficit: Mobility/T 2- Prashanth ansfer shower/tub ransfer 10:30: [id number] 00 Bed knowledge/s PT/OT: Bed Active 2018-10 Antonio Mobility/Tr kill Mobility/T Prashanth ansfer deficit: pt ransfer 10:30: [id number] 00 Bed bed PT/OT: Bed Active 2018-10 Antonio Mobility/Tr mobility Mobility/T Prashanth ansfer deficit ransfer 10:30: [id number] 00 Gait/Locomo gait PT/OT: Active 2018-10 Antonio tion assistive Gait/Locom 2- Prashanth problems device otion 10:30: [id number] present 00 Gait/Locomo knowledge/s PT/OT: Active 2018-10 Antonio tion kill Gait/Locom - Prashanth problems deficit: pt otion 10:30: [id number] 00 Gait/Locomo gait PT/OT: Active 2018-10 Antonio tion deficit Gait/Locom -31 Prashanth problems otion 10:30: [id number] 00 Allergies, Adverse Reactions, Alerts Allergy Allergy Status Severity Reaction(s) Onset Inactive Treating Comments Name Type Date Date Clinician PCN Unknown Active Unknown Reaction 2018-06 Florencia Unknown -01 (Francisco Javier) Ellen [id number] Medications Ordered Filled Start Stop Current Ordering [...]
--- OUTSIDE RECORDS SUMMARY | 2019-12-12 17:39 | XMS REPORT ---
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 10-11 Prashanth [id number] Legal Legal Diagnosis Active Antonio blindness, blindness, 10-11 Prashanth as defined [place] defined [id number] [place] 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 Prashanth and and [id number] 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 10-11 Prashanth [id number] Anxiety Anxiety Diagnosis Active Antonio disorder, disorder, Prashanth unspecified unspecified 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) (current) Prashanth use of use of [id number] anticoagula anticoagula nts nts Personal Personal Diagnosis Active Antonio history of history of Prashanth nicotine nicotine [id number] dependence dependence Pain frequent Pain Mgmt Resolve 2018-102019-11-02 Maria pain d 12:45:00 [place] 09:10: [id number] 00 Respiratory dyspnea Respirator Resolve 2018-102019-11-02 Maria present y d 12:45:00 [place] 09:10: [id number] 00 Endo/Donato anti-coagul Endo/Donato Resolve 2018-102019-11-02 Maria ation d 12:45:00 [place] therapy 09:10: [id number] 00 Sensory impaired Sensory Resolve 2018-102019-11-02 Maria vision d 12:45:00 [place] 09:10: [id number] 00 Sensory impaired Sensory Resolve 2018-102019-11-02 Maria hearing d 12:45:00 [place] 09:10: [id number] 00 Integument skin Integument Resolve 2018-102019-11-02 Maria integrity d 12:45:00 [place] risk 09:10: [id number] 00 Nutrition nutritional Nutrition Resolve 2018-102019-11-02 Maria restriction d 12:45:00 Emily s 09:10: [id number] 00 Elimination urinary Eliminatio Resolve 2018-102019-11-02 Maria incontinenc n d 12:45:00 [place] e 09:10: [id number] 00 Neuro confusion Neuro/Emot Resolve 2018-102019-11-02 Maria present ion d 12:45:00 [place] 09:10: [id number] 00 Neuro anxiety Neuro/Emot Resolve 2018-102019-11-02 Maria present ion d 12:45:00 [place] 09:10: [id number] 00 Neuro impaired Neuro/Emot Resolve 2018-102019-11-02 Maria decision-ma ion d 12:45:00 [place]flavia [place]var[place] 09:10: [id number] 00 Neuro psychiatric Neuro/Emot Resolve 2018-102019-11-02 Maria problems ion d 12:45:00 [place] 09:10: [id number] 00 Neuro memory Neuro/Emot Resolve 2018-102019-11-02 Maria deficit ion d 12:45:00 [place] needing 09:10: [id number] supervision 00 Activity ADL Activity Resolve 2018-102019-11-02 Maria assistance d 12:45:00 [place] required 09:10: [id number] 00 Activity self-care Activity Resolve 2018-102019-11-02 Maria deficit d 12:45:00 [place] 09:10: [id number] 00 Safety cannot be Safety Resolve 2018-102019-11-02 Maria left alone d 12:45:00 [place] 09:10: [id number] 00 Safety fall risk Safety Resolve 2018-102019-11-02 Maria factor d 12:45:00 [place] present 09:10: [id number] 00 Safety risk for Safety Resolve 2018-102019-11-02 Maria hospitaliza d 12:45:00 [place] tion 09:10: [id number] 00 Medication oral med Meds Resolve 2018-102019-11-02 Maria assistance d 12:45:00 [place] required 09:10: [id number] 00 Medication injectable Meds Resolve 2018-102019-11-02 Maria med d 12:45:00 [place] assistance 09:10: [id number] required 00 Musculoskel transfer Musculoske Resolve 2018-102019-11-02 Maria etal assistance letal d 12:45:00 [place] required 09:10: [id number] 00 Musculoskel requires Musculoske Resolve 2018-102019-11-02 Maria etal human letal d 12:45:00 [place] assist to 09:10: [id number] leave home 00 Safety can be left Safety Resolve 2018-102019-11-02 Antonio alone for d 12:45:00 Prashanth jennings 10:30: [id number] periods 00 Bed transfer PT/OT: Bed Resolve 2018-102019-11-02 Antonio Mobility/Tr deficit: Mobility/T d 12:45:00 Prashanth altman sit/stand ransfer 10:30: [id number] 00 Bed transfer PT/OT: Bed Resolve 2018-102019-11-02 Antonio Mobility/Tr deficit: Mobility/T d 12:45:00 Prashanth altman toilet/comm ransfer 10:30: [id number] ode 00 Bed transfer PT/OT: Bed Resolve 2018-102019-11-02 Antonio Mobility/Tr deficit: Mobility/T d 12:45:00 Prashanth altman shower/tub ransfer 10:30: [id number] 00 Bed knowledge/s PT/OT: Bed Resolve 2018-102019-11-02 Antonio Mobility/Tr kill Mobility/T d 12:45:00 Prashanth altman deficit: pt ransfer 10:30: [id number] 00 Bed bed PT/OT: Bed Resolve 2018-102019-11-02 Antonio Mobility/Tr mobility Mobility/T d 12:45:00 Prashanth ansfer deficit ransfer 10:30: [id number] 00 Gait/Locomo gait PT/OT: Resolve 2018-102019-11-02 Antonio tion assistive Gait/Locom d 12:45:00 Prashanth problems device otion 10:30: [id number] present 00 Gait/Locomo knowledge/s PT/OT: Resolve 2018-102019-11-02 Antonio francison kill Gait/Locom d 12:45:00 Prashanth problems deficit: pt otion 10:30: [id number] 00 Gait/Locomo gait PT/OT: Resolve 2018-102019-11-02 Antonio tion deficit Gait/Locom d 12:45:00 Prashanth problems otion 10:30: [id number] 00 Allergies, Adverse Reactions, Alerts Allergy Allergy Status Severity Reaction(s) Onset Inactive Treating Comments Name Type Date Date Clinician PCN Unknown Active Unknown Reaction 2018-06 Florencia Unknown - (Francisco Javier) Ellen [id number] Medications Ordered Filled Start Stop Current Ordering [...]
--- OUTSIDE RECORDS SUMMARY | 2019-12-12 17:39 | XMS REPORT ---
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 Prashanth subacute subacute [id number] dyskinesia dyskinesia Orthostatic Orthostatic Diagnosis Active Antonio hypotension hypotension 10-11 Prashanth [id number] Legal Legal Diagnosis Active Antonio blindness, blindness, 10-11 Prashanth as defined as defined [id number] [place] 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 Prashanth and and [id number] 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 10-11 Prashanth [id number] Anxiety Anxiety Diagnosis Active Antonio disorder, disorder, Prashanth unspecified unspecified 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) (current) Prashanth use of use of [id number] anticoagula anticoagula nts nts Personal Personal Diagnosis Active Antonio history of history of Prashanth nicotine nicotine [id number] dependence dependence Pain frequent Pain Mgmt Resolve 2018-102019-11-02 Maria pain d 12:45:00 [place] 09:10: [id number] 00 Respiratory dyspnea Respirator Resolve 2018-102019-11-02 Maria present y d 12:45:00 [place] 09:10: [id number] 00 Endo/Donato anti-coagul Endo/Donato Resolve 2018-102019-11-02 Maria ation d 12:45:00 [place] therapy 09:10: [id number] 00 Sensory impaired Sensory Resolve 2018-102019-11-02 Maria vision d 12:45:00 [place] 09:10: [id number] 00 Sensory impaired Sensory Resolve 2018-102019-11-02 Maria hearing d 12:45:00 [place] 09:10: [id number] 00 Integument skin Integument Resolve 2018-102019-11-02 Maria integrity d 12:45:00 [place] risk 09:10: [id number] 00 Nutrition nutritional Nutrition Resolve 2018-102019-11-02 Maria restriction d 12:45:00 [place] s 09:10: [id number] 00 Elimination urinary Eliminatio Resolve 2018-102019-11-02 Maria incontinenc n d 12:45:00 [place] e 09:10: [id number] 00 Neuro confusion Neuro/Emot Resolve 2018-102019-11-02 Maria present ion d 12:45:00 [place] 09:10: [id number] 00 Neuro anxiety Neuro/Emot Resolve 2018-102019-11-02 Maria present ion d 12:45:00 [place] 09:10: [id number] 00 Neuro impaired Neuro/Emot Resolve 2018-102019-11-02 Maria decision-ma ion d 12:45:00 Emilyflavia alvar[place] 09:10: [id number] 00 Neuro psychiatric Neuro/Emot Resolve 2018-102019-11-02 Maria problems ion d 12:45:00 [place] 09:10: [id number] 00 Neuro memory Neuro/Emot Resolve 2018-102019-11-02 Maria deficit ion d 12:45:00 [place] needing 09:10: [id number] supervision 00 Activity ADL Activity Resolve 2018-102019-11-02 Maria assistance d 12:45:00 [place] required 09:10: [id number] 00 Activity self-care Activity Resolve 2018-102019-11-02 Maria deficit d 12:45:00 [place] 09:10: [id number] 00 Safety cannot be Safety Resolve 2018-102019-11-02 Maria left alone d 12:45:00 [place] 09:10: [id number] 00 Safety fall risk Safety Resolve 2018-102019-11-02 Maria factor d 12:45:00 [place] present 09:10: [id number] 00 Safety risk for Safety Resolve 2018-102019-11-02 Maria hospitaliza d 12:45:00 [place] tion 09:10: [id number] 00 Medication oral med Meds Resolve 2018-102019-11-02 Maria assistance d 12:45:00 [place] required 09:10: [id number] 00 Medication injectable Meds Resolve 2018-102019-11-02 Maria med d 12:45:00 [place] assistance 09:10: [id number] required 00 Musculoskel transfer Musculoske Resolve 2018-102019-11-02 Maria etal assistance letal d 12:45:00 [place] required 09:10: [id number] 00 Musculoskel requires Musculoske Resolve 2018-102019-11-02 Maria etal human letal d 12:45:00 [place] assist to 09:10: [id number] leave home 00 Safety can be left Safety Resolve 2018-102019-11-02 Antonio alone for d 12:45:00 Prashanth jennings 10:30: [id number] periods 00 Bed transfer PT/OT: Bed Resolve 2018-102019-11-02 Antonio Mobility/Tr deficit: Mobility/T d 12:45:00 Prashanth altman sit/stand ransfer 10:30: [id number] 00 Bed transfer PT/OT: Bed Resolve 2018-102019-11-02 Antonio Mobility/Tr deficit: Mobility/T d 12:45:00 Prashanth altman toilet/comm ransfer 10:30: [id number] ode 00 Bed transfer PT/OT: Bed Resolve 2018-102019-11-02 Antonio Mobility/Tr deficit: Mobility/T d 12:45:00 Prashanth altman shower/tub ransfer 10:30: [id number] 00 Bed knowledge/s PT/OT: Bed Resolve 2018-102019-11-02 Antonio Mobility/Tr kill Mobility/T d 12:45:00 Prashanth altman deficit: pt ransfer 10:30: [id number] 00 Bed bed PT/OT: Bed Resolve 2018-102019-11-02 Antonio Mobility/Tr mobility Mobility/T d 12:45:00 Prashanth ansfer deficit ransfer 10:30: [id number] 00 Gait/Locomo gait PT/OT: Resolve 2018-102019-11-02 Antonio tion assistive Gait/Locom d 12:45:00 Prashanth problems device otion 10:30: [id number] present 00 Gait/Locomo knowledge/s PT/OT: Resolve 2018-102019-11-02 Antonio francison kill Gait/Locom d 12:45:00 Prashanth problems deficit: pt otion 10:30: [id number] 00 Gait/Locomo gait PT/OT: Resolve 2018-102019-11-02 Antonio tion deficit Gait/Locom d 12:45:00 Prashanth problems otion 10:30: [id number] 00 Allergies, Adverse Reactions, Alerts Allergy Allergy Status Severity Reaction(s) Onset Inactive Treating Comments Name Type Date Date Clinician PCN Unknown Active Unknown Reaction 2018-06 Florencia Unknown - (Francisco Javier) Ellen [id number] Medications Ordered Filled Start Stop Current Ordering [...]
--- OUTSIDE RECORDS SUMMARY | 2019-12-12 17:40 | XMS REPORT ---
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 Prashanth subacute subacute [id number] dyskinesia dyskinesia Orthostatic Orthostatic Diagnosis Active Antonio hypotension hypotension 10-11 Prashanth [id number] Legal Legal Diagnosis Active Antonio blindness, blindness, 10-11 Prashanth as defined as defined [id number] [place] 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 Prashanth and and [id number] 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 10-11 Prashanth [id number] Anxiety Anxiety Diagnosis Active Antonio disorder, disorder, Prashanth unspecified unspecified 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) (current) Prashanth use of use of [id number] anticoagula anticoagula nts nts Personal Personal Diagnosis Active Antonio history of history of Prashanth nicotine nicotine [id number] dependence dependence Pain frequent Pain Mgmt Active 2018-10 [facility] pain [place] 09:10: [id number] 00 Respiratory dyspnea Respirator Active 2018-10 [facility] present y [place] 09:10: [id number] 00 Endo/Donato anti-coagul Endo/Donato Active 2018-10 Maria ation [place] therapy 09:10: [id number] 00 Sensory impaired Sensory Active 2018-10 [facility] vision [place] 09:10: [id number] 00 Sensory impaired Sensory Active 2018-10 [facility] hearing [place] 09:10: [id number] 00 Integument skin Integument Active 2018-10 Maria integrity [place] risk 09:10: [id number] 00 Nutrition nutritional Nutrition Active 2018-10 Maria restriction [place] s 09:10: [id number] 00 Elimination urinary Eliminatio Active 2018-10 Maria incontinenc n [place] e 09:10: [id number] 00 Neuro confusion Neuro/Emot Active 2018-10 Maria present ion [place] 09:10: [id number] 00 Neuro anxiety Neuro/Emot Active 2018-10 Maria present ion [place] 09:10: [id number] 00 Neuro impaired Neuro/Emot Active 2018-10 Maria decision-ma ion [place] christiano 09:10: [id number] 00 Neuro psychiatric Neuro/Emot Active 2018-10 Maria problems ion [place] 09:10: [id number] 00 Neuro memory Neuro/Emot Active 2018-10 Maria deficit ion [place] needing 09:10: [id number] supervision 00 Activity ADL Activity Active 2018-10 Maria assistance [place] required 09:10: [id number] 00 Activity self-care Activity Active 2018-10 Maria deficit [place] 09:10: [id number] 00 Safety cannot be Safety Active 2018-10 Maria left alone [place] 09:10: [id number] 00 Safety fall risk Safety Active 2018-10 Maria factor [place] present 09:10: [id number] 00 Safety risk for Safety Active 2018-10 Maria hospitaliza [place] tion 09:10: [id number] 00 Medication oral med Meds Active 2018-10 Maria assistance [place] required 09:10: [id number] 00 Medication injectable Meds Active 2018-10 Maria med [place] assistance 09:10: [id number] required 00 Musculoskel transfer Musculoske Active 2018-10 Maria etal assistance letal [place] required 09:10: [id number] 00 Musculoskel requires Musculoske Active 2018-10 Maria etal human letal [place] assist to 09:10: [id number] leave home 00 Safety can be left Safety Active 2018-10 Antonio alone for Prashanth only short 10:30: [id number] periods 00 Bed transfer PT/OT: Bed Active 2018-10 Antonio Mobility/Tr deficit: Mobility/T 2- Prashanth ansfer sit/stand ransfer 10:30: [id number] 00 Bed transfer PT/OT: Bed Active 2018-10 Antonio Mobility/Tr deficit: Mobility/T 2- Prashanth caylafer toilet/comm ransfer 10:30: [id number] ode 00 Bed transfer PT/OT: Bed Active 2018-10 Antonio Mobility/Tr deficit: Mobility/T 2- Prashanth ansfer shower/tub ransfer 10:30: [id number] 00 Bed knowledge/s PT/OT: Bed Active 2018-10 Antonio Mobility/Tr kill Mobility/T Prashanth ansfer deficit: pt ransfer 10:30: [id number] 00 Bed bed PT/OT: Bed Active 2018-10 Antonio Mobility/Tr mobility Mobility/T Prashanth ansfer deficit ransfer 10:30: [id number] 00 Gait/Locomo gait PT/OT: Active 2018-10 Antonio tion assistive Gait/Locom 2- Prashanth problems device otion 10:30: [id number] present 00 Gait/Locomo knowledge/s PT/OT: Active 2018-10 Antonio tion kill Gait/Locom - Prashanth problems deficit: pt otion 10:30: [id number] 00 Gait/Locomo gait PT/OT: Active 2018-10 Antonio tion deficit Gait/Locom -31 Prashanth problems otion 10:30: [id number] 00 Allergies, Adverse Reactions, Alerts Allergy Allergy Status Severity Reaction(s) Onset Inactive Treating Comments Name Type Date Date Clinician PCN Unknown Active Unknown Reaction 2018-06 Florencia Unknown -01 (Francisco Javier) Ellen [id number] Medications Ordered Filled Start Stop Current Ordering [...] Observation Time Observation Value Comments SYSTOLIC mm[Hg] 2019-10-19 18:09:47 110 mm[Hg] mm[Hg] Method: Sit SYSTOLIC mm[Hg] 2019-10-10 18:09:38 90 mm[Hg] mm[Hg] Method: Stand DIASTOLIC mm[Hg] 2019-10-19 18:09:47 60 mm[Hg] mm[Hg] Method: Sit DIASTOLIC mm[Hg] 2019-10-10 18:09:38 64 mm[Hg] mm[Hg] Method: Stand PULSE 2019-10-19 18:09:47 64 /min /min RESP RATE 2019-10-10 18:09:38 16 /min /min TEMP 2019-10-19 18:09:47 98.2 [degF] Procedures This patient has no known procedures. Results This patient has no known results.
--- OUTSIDE RECORDS SUMMARY | 2019-12-12 17:40 | XMS REPORT ---
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-11 Prashanth subacute subacute [id number] dyskinesia dyskinesia Orthostatic Orthostatic Diagnosis Active Antonio hypotension hypotension 10-11 Prashanth [id number] Legal Legal Diagnosis Active Antonio blindness, blindness, 10-11 Prashanth as defined as defined [id number] [place] 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 Prashanth and and [id number] 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 10-11 Prashanth [id number] Anxiety Anxiety Diagnosis Active Antonio disorder, disorder, Prashanth unspecified unspecified 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 (current) (current) Prashanth use of use of [id number] anticoagula anticoagula nts nts Personal Personal Diagnosis Active Antonio history of history of Prashanth nicotine nicotine [id number] dependence dependence Pain frequent Pain Mgmt Active 2018-10 [facility] pain [place] 09:10: [id number] 00 Respiratory dyspnea Respirator Active 2018-10 [facility] present y [place] 09:10: [id number] 00 Endo/Donato anti-coagul Endo/Donato Active 2018-10 Maria ation [place] therapy 09:10: [id number] 00 Sensory impaired Sensory Active 2018-10 [facility] vision [place] 09:10: [id number] 00 Sensory impaired Sensory Active 2018-10 [facility] hearing [place] 09:10: [id number] 00 Integument skin Integument Active 2018-10 Maria integrity [place] risk 09:10: [id number] 00 Nutrition nutritional Nutrition Active 2018-10 Maria restriction [place] s 09:10: [id number] 00 Elimination urinary Eliminatio Active 2018-10 Maria incontinenc n [place] e 09:10: [id number] 00 Neuro confusion Neuro/Emot Active 2018-10 Maria present ion [place] 09:10: [id number] 00 Neuro anxiety Neuro/Emot Active 2018-10 Maria present ion [place] 09:10: [id number] 00 Neuro impaired Neuro/Emot Active 2018-10 Maria decision-ma ion [place] christiano 09:10: [id number] 00 Neuro psychiatric Neuro/Emot Active 2018-10 Maria problems ion [place] 09:10: [id number] 00 Neuro memory Neuro/Emot Active 2018-10 Maria deficit ion [place] needing 09:10: [id number] supervision 00 Activity ADL Activity Active 2018-10 Maria assistance [place] required 09:10: [id number] 00 Activity self-care Activity Active 2018-10 Maria deficit [place] 09:10: [id number] 00 Safety cannot be Safety Active 2018-10 Maria left alone [place] 09:10: [id number] 00 Safety fall risk Safety Active 2018-10 Maria factor [place] present 09:10: [id number] 00 Safety risk for Safety Active 2018-10 Maria hospitaliza [place] tion 09:10: [id number] 00 Medication oral med Meds Active 2018-10 Maria assistance [place] required 09:10: [id number] 00 Medication injectable Meds Active 2018-10 Maria med [place] assistance 09:10: [id number] required 00 Musculoskel transfer Musculoske Active 2018-10 Maria etal assistance letal [place] required 09:10: [id number] 00 Musculoskel requires Musculoske Active 2018-10 Maria etal human letal [place] assist to 09:10: [id number] leave home 00 Safety can be left Safety Active 2018-10 Antonio alone for Prashanth only short 10:30: [id number] periods 00 Bed transfer PT/OT: Bed Active 2018-10 Antonio Mobility/Tr deficit: Mobility/T 2- Prashanth ansfer sit/stand ransfer 10:30: [id number] 00 Bed transfer PT/OT: Bed Active 2018-10 Antonio Mobility/Tr deficit: Mobility/T 2- Prashanth caylafer toilet/comm ransfer 10:30: [id number] ode 00 Bed transfer PT/OT: Bed Active 2018-10 Antonio Mobility/Tr deficit: Mobility/T 2- Prashanth ansfer shower/tub ransfer 10:30: [id number] 00 Bed knowledge/s PT/OT: Bed Active 2018-10 Antonio Mobility/Tr kill Mobility/T Prashanth ansfer deficit: pt ransfer 10:30: [id number] 00 Bed bed PT/OT: Bed Active 2018-10 Antonio Mobility/Tr mobility Mobility/T Prashanth ansfer deficit ransfer 10:30: [id number] 00 Gait/Locomo gait PT/OT: Active 2018-10 Antonio tion assistive Gait/Locom 2- Prashanth problems device otion 10:30: [id number] present 00 Gait/Locomo knowledge/s PT/OT: Active 2018-10 Antonio tion kill Gait/Locom - Prashanth problems deficit: pt otion 10:30: [id number] 00 Gait/Locomo gait PT/OT: Active 2018-10 Antonio tion deficit Gait/Locom -31 Prashanth problems otion 10:30: [id number] 00 Allergies, Adverse Reactions, Alerts Allergy Allergy Status Severity Reaction(s) Onset Inactive Treating Comments Name Type Date Date Clinician PCN Unknown Active Unknown Reaction 2018-06 Florencia Unknown -01 (Francisco Javier) Ellen [id number] Medications Ordered Filled Start Stop Current Ordering [...]
--- OUTSIDE RECORDS SUMMARY | 2019-12-12 17:40 | XMS REPORT ---
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 10-11 Prashanth [id number] Legal Legal Diagnosis Active Antonio blindness, blindness, 10-11 Prashanth as defined as defined [id number] [place] 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 Prashanth and and [id number] 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 10-11 Prashanth [id number] Anxiety Anxiety Diagnosis Active Antonio disorder, disorder, Prashanth unspecified unspecified 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 (current) (current) Prashanth use of use of [id number] anticoagula anticoagula nts nts Personal Personal Diagnosis Active Antonio history of history of Prashanth nicotine nicotine [id number] dependence dependence Pain frequent Pain Mgmt Active 2018-10 [facility] pain [place] 09:10: [id number] Respiratory dyspnea Respirator Active 2018-10 [facility] present y [facility] 09:10: [id number] 00 Endo/Donato anti-coagul Endo/Donato Active 2018-10 Maria ation [facility] therapy 09:10: [id number] 00 Sensory impaired Sensory Active 2018-10 [facility] vision [place] 09:10: [id number] 00 Sensory impaired Sensory Active 2018-10 [facility] hearing [place] 09:10: [id number] 00 Integument skin Integument Active 2018-10 Maria integrity [facility] risk 09:10: [id number] 00 Nutrition nutritional Nutrition Active 2018-10 Maria restriction [facility] s 09:10: [id number] 00 Elimination urinary Eliminatio Active 2018-10 Maria incontinenc n [facility] e 09:10: [id number] 00 Neuro confusion Neuro/Emot Active 2018-10 Maria present ion [facility] 09:10: [id number] 00 Neuro anxiety Neuro/Emot Active 2018-10 Maria present ion [facility] 09:10: [id number] 00 Neuro impaired Neuro/Emot Active 2018-10 Maria decision-ma ion [facility] [place] 09:10: [id number] 00 Neuro psychiatric Neuro/Emot Active 2018-10 Maria problems ion [facility] 09:10: [id number] 00 Neuro memory Neuro/Emot Active 2018-10 Maria deficit ion [facility] needing 09:10: [id number] supervision 00 Activity ADL Activity Active 2018-10 Maria assistance [facility] required 09:10: [id number] 00 Activity self-care Activity Active 2018-10 Maria deficit [facility] 09:10: [id number] 00 Safety cannot be Safety Active 2018-10 Maria left alone [facility] 09:10: [id number] 00 Safety fall risk Safety Active 2018-10 Maria factor [facility] present 09:10: [id number] 00 Safety risk for Safety Active 2018-10 Maria hospitaliza [facility] tion 09:10: [id number] 00 Medication oral med Meds Active 2018-10 Maria assistance [facility] required 09:10: [id number] 00 Medication injectable Meds Active 2018-10 Maria med [facility] assistance 09:10: [id number] required 00 Musculoskel transfer Musculoske Active 2018-10 Maria etal assistance letal [facility] required 09:10: [id number] 00 Musculoskel requires Musculoske Active 2018-10 Maria etal human letal [facility] assist to 09:10: [id number] leave home 00 Safety can be left Safety Active 2018-10 Antonio alone for Prashanth only short 10:30: [id number] periods 00 Bed transfer PT/OT: Bed Active 2018-10 [place] Mobility/Tr deficit: Mobility/T 2- Prashanth ansfer sit/stand ransfer 10:30: [id number] 00 Bed transfer PT/OT: Bed Active 2018-10 Antonio Mobility/Tr deficit: Mobility/T 2- Prashanth caylafer toilet/comm ransfer 10:30: [id number] ode 00 Bed transfer PT/OT: Bed Active 2018-10 Antonio Mobility/Tr deficit: Mobility/T 2- Prashanth ansfer shower/tub ransfer 10:30: [id number] 00 Bed knowledge/s PT/OT: Bed Active 2018-10 Antonio Mobility/Tr kill Mobility/T Prashanth ansfer deficit: pt ransfer 10:30: [id number] 00 Bed bed PT/OT: Bed Active 2018-10 Antonio Mobility/Tr mobility Mobility/T Prashanth ansfer deficit ransfer 10:30: [id number] 00 Gait/Locomo gait PT/OT: Active 2018-10 Antonio tion assistive Gait/Locom 2- Prashanth problems device otion 10:30: [id number] present 00 Gait/Locomo knowledge/s PT/OT: Active 2018-10 Antonio tion kill Gait/Locom - Prashanth problems deficit: pt otion 10:30: [id number] 00 Gait/Locomo gait PT/OT: Active 2018-10 Antonio tion deficit Gait/Locom -31 Prashanth problems otion 10:30: [id number] 00 Allergies, Adverse Reactions, Alerts Allergy Allergy Status Severity Reaction(s) Onset Inactive Treating Comments Name Type Date Date Clinician PCN Unknown Active Unknown Reaction 2018-06 [place] Unknown -01 (Francisco Javier) Ellen [id number] Medications Ordered Filled Start Stop Current Ordering [...] Observation Time Observation Value Comments SYSTOLIC mm[Hg] 2019-10-16 18:09:44 110 mm[Hg] mm[Hg] Method: Sit SYSTOLIC mm[Hg] 2019-10-10 18:09:38 90 mm[Hg] mm[Hg] Method: Stand DIASTOLIC mm[Hg] 2019-10-16 18:09:44 60 mm[Hg] mm[Hg] Method: Sit DIASTOLIC mm[Hg] 2019-10-10 18:09:38 64 mm[Hg] mm[Hg] Method: Stand PULSE 2019-10-16 18:09:44 60 /min /min RESP RATE 2019-10-10 18:09:38 16 /min /min TEMP 2019-10-16 18:09:44 98.2 [degF] Procedures This patient has no known procedures. Results This patient has no known results.
--- OUTSIDE RECORDS SUMMARY | 2019-12-12 17:40 | XMS REPORT ---
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 10-11 Prashanth [id number] Legal Legal Diagnosis Active Antonio blindness, blindness, 10-11 Prashanth as defined as defined [id number] [place] 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 Prashanth and and [id number] 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 10-11 Prashanth [id number] Anxiety Anxiety Diagnosis Active Antonio disorder, disorder, Prashanth unspecified unspecified 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 (current) (current) Prashanth use of use of [id number] anticoagula anticoagula nts nts Personal Personal Diagnosis Active Antonio history of history of Prashanth nicotine nicotine [id number] dependence dependence Pain frequent Pain Mgmt Active 2018-10 [facility] pain [place] 09:10: [id number] 00 Respiratory dyspnea Respirator Active 2018-10 [facility] present y [place] 09:10: [id number] 00 Endo/Donato anti-coagul Endo/Donato Active 2018-10 Maria ation [place] therapy 09:10: [id number] 00 Sensory impaired Sensory Active 2018-10 [facility] vision [place] 09:10: [id number] 00 Sensory impaired Sensory Active 2018-10 [facility] hearing [place] 09:10: [id number] 00 Integument skin Integument Active 2018-10 Maria integrity [place] risk 09:10: [id number] 00 Nutrition nutritional Nutrition Active 2018-10 Maria restriction [place] s 09:10: [id number] 00 Elimination urinary Eliminatio Active 2018-10 Maria incontinenc n [place] e 09:10: [id number] 00 Neuro confusion Neuro/Emot Active 2018-10 Maria present ion [place] 09:10: [id number] 00 Neuro anxiety Neuro/Emot Active 2018-10 Maria present ion [place] 09:10: [id number] 00 Neuro impaired Neuro/Emot Active 2018-10 Maria decision-ma ion [place] christ[place] 09:10: [id number] 00 Neuro psychiatric Neuro/Emot Active 2018-10 Maria problems ion [place] 09:10: [id number] 00 Neuro memory Neuro/Emot Active 2018-10 Maria deficit ion [place] needing 09:10: [id number] supervision 00 Activity ADL Activity Active 2018-10 Maria assistance [place] required 09:10: [id number] 00 Activity self-care Activity Active 2018-10 Maria deficit [place] 09:10: [id number] 00 Safety cannot be Safety Active 2018-10 Maria left alone [place] 09:10: [id number] 00 Safety fall risk Safety Active 2018-10 Maria factor [place] present 09:10: [id number] 00 Safety risk for Safety Active 2018-10 Maria hospitaliza [place] tion 09:10: [id number] 00 Medication oral med Meds Active 2018-10 Maria assistance [place] required 09:10: [id number] 00 Medication injectable Meds Active 2018-10 Maria med [place] assistance 09:10: [id number] required 00 Musculoskel transfer Musculoske Active 2018-10 Maria etal assistance letal [place] required 09:10: [id number] 00 Musculoskel requires Musculoske Active 2018-10 Maria etal human letal [place] assist to 09:10: [id number] leave home 00 Safety can be left Safety Active 2018-10 Antonio alone for Prashanth only short 10:30: [id number] periods 00 Bed transfer PT/OT: Bed Active 2018-10 Antonio Mobility/Tr deficit: Mobility/T 2- Prashanth ansfer sit/stand ransfer 10:30: [id number] 00 Bed transfer PT/OT: Bed Active 2018-10 Antonio Mobility/Tr deficit: Mobility/T 2- Prashanth caylafer toilet/comm ransfer 10:30: [id number] ode 00 Bed transfer PT/OT: Bed Active 2018-10 Antonio Mobility/Tr deficit: Mobility/T 2- Prashanth ansfer shower/tub ransfer 10:30: [id number] 00 Bed knowledge/s PT/OT: Bed Active 2018-10 Antonio Mobility/Tr kill Mobility/T Prashanth ansfer deficit: pt ransfer 10:30: [id number] 00 Bed bed PT/OT: Bed Active 2018-10 Antonio Mobility/Tr mobility Mobility/T Prashanth ansfer deficit ransfer 10:30: [id number] 00 Gait/Locomo gait PT/OT: Active 2018-10 Antonio tion assistive Gait/Locom 2- Prashanth problems device otion 10:30: [id number] present 00 Gait/Locomo knowledge/s PT/OT: Active 2018-10 Antonio tion kill Gait/Locom - Prashanth problems deficit: pt otion 10:30: [id number] 00 Gait/Locomo gait PT/OT: Active 2018-10 Antonio tion deficit Gait/Locom -31 Prashanth problems otion 10:30: [id number] 00 Allergies, Adverse Reactions, Alerts Allergy Allergy Status Severity Reaction(s) Onset Inactive Treating Comments Name Type Date Date Clinician PCN Unknown Active Unknown Reaction 2018-06 Flore[place] Unknown -01 (Francisco Javier) Ellen [id number] Medications Ordered Filled Start Stop Current Ordering [...]
--- OUTSIDE RECORDS SUMMARY | 2019-12-12 17:40 | XMS REPORT ---
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 10-11 Prashanth [id number] Legal Legal Diagnosis Active Antonio blindness, blindness, 10-11 Prashanth as defined as defined [id number] [place] 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 Prashanth and and [id number] 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 10-11 Prashanth [id number] Anxiety Anxiety Diagnosis Active Antonio disorder, disorder, Prashanth unspecified unspecified 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 (current) (current) Prashanth use of use of [id number] anticoagula anticoagula nts nts Personal Personal Diagnosis Active Antonio history of history of Prashanth nicotine nicotine [id number] dependence dependence Pain frequent Pain Mgmt Active 2018-10 [facility] pain [place] 09:10: [id number] 00 Respiratory dyspnea Respirator Active 2018-10 [facility] present y [place] 09:10: [id number] 00 Endo/Donato anti-coagul Endo/Donato Active 2018-10 Maria ation [place] therapy 09:10: [id number] 00 Sensory impaired Sensory Active 2018-10 [facility] vision [place] 09:10: [id number] 00 Sensory impaired Sensory Active 2018-10 [facility] hearing [place] 09:10: [id number] 00 Integument skin Integument Active 2018-10 Maria integrity [place] risk 09:10: [id number] 00 Nutrition nutritional Nutrition Active 2018-10 Maria restriction [place] s 09:10: [id number] 00 Elimination urinary Eliminatio Active 2018-10 Maria incontinenc n [place] e 09:10: [id number] 00 Neuro confusion Neuro/Emot Active 2018-10 Maria present ion [place] 09:10: [id number] 00 Neuro anxiety Neuro/Emot Active 2018-10 Maria present ion [place] 09:10: [id number] 00 Neuro impaired Neuro/Emot Active 2018-10 Maria decision-ma ion [place] christiano 09:10: [id number] 00 Neuro psychiatric Neuro/Emot Active 2018-10 Maria problems ion [place] 09:10: [id number] 00 Neuro memory Neuro/Emot Active 2018-10 Maria deficit ion [place] needing 09:10: [id number] supervision 00 Activity ADL Activity Active 2018-10 Maria assistance [place] required 09:10: [id number] 00 Activity self-care Activity Active 2018-10 Maria deficit [place] 09:10: [id number] 00 Safety cannot be Safety Active 2018-10 Maria left alone [place] 09:10: [id number] 00 Safety fall risk Safety Active 2018-10 Maria factor [place] present 09:10: [id number] 00 Safety risk for Safety Active 2018-10 Maria hospitaliza [place] tion 09:10: [id number] 00 Medication oral med Meds Active 2018-10 Maria assistance [place] required 09:10: [id number] 00 Medication injectable Meds Active 2018-10 Maria med [place] assistance 09:10: [id number] required 00 Musculoskel transfer Musculoske Active 2018-10 Maria etal assistance letal [place] required 09:10: [id number] 00 Musculoskel requires Musculoske Active 2018-10 Maria etal human letal [place] assist to 09:10: [id number] leave home 00 Safety can be left Safety Active 2018-10 Antonio alone for Prashanth only short 10:30: [id number] periods 00 Bed transfer PT/OT: Bed Active 2018-10 Antonio Mobility/Tr deficit: Mobility/T 2- Prashanth ansfer sit/stand ransfer 10:30: [id number] 00 Bed transfer PT/OT: Bed Active 2018-10 Antonio Mobility/Tr deficit: Mobility/T 2- Prashanth caylafer toilet/comm ransfer 10:30: [id number] ode 00 Bed transfer PT/OT: Bed Active 2018-10 Antonio Mobility/Tr deficit: Mobility/T 2- Prashanth ansfer shower/tub ransfer 10:30: [id number] 00 Bed knowledge/s PT/OT: Bed Active 2018-10 Antonio Mobility/Tr kill Mobility/T Prashanth ansfer deficit: pt ransfer 10:30: [id number] 00 Bed bed PT/OT: Bed Active 2018-10 Antonio Mobility/Tr mobility Mobility/T Prashanth ansfer deficit ransfer 10:30: [id number] 00 Gait/Locomo gait PT/OT: Active 2018-10 Antonio tion assistive Gait/Locom 2- Prashanth problems device otion 10:30: [id number] present 00 Gait/Locomo knowledge/s PT/OT: Active 2018-10 Antonio tion kill Gait/Locom - Prashanth problems deficit: pt otion 10:30: [id number] 00 Gait/Locomo gait PT/OT: Active 2018-10 Antonio tion deficit Gait/Locom -31 Prashanth problems otion 10:30: [id number] 00 Allergies, Adverse Reactions, Alerts Allergy Allergy Status Severity Reaction(s) Onset Inactive Treating Comments Name Type Date Date Clinician PCN Unknown Active Unknown Reaction 2018-06 [place] Unknown -01 (Francisco Javier) Ellen [id number] Medications Ordered Filled Start Stop Current Ordering [...] Observation Time Observation Value Comments SYSTOLIC mm[Hg] 2019-10-12 18:09:40 110 mm[Hg] mm[Hg] Method: Sit SYSTOLIC mm[Hg] 2019-10-10 18:09:38 90 mm[Hg] mm[Hg] Method: Stand DIASTOLIC mm[Hg] 2019-10-12 18:09:40 60 mm[Hg] mm[Hg] Method: Sit DIASTOLIC mm[Hg] 2019-10-10 18:09:38 64 mm[Hg] mm[Hg] Method: Stand PULSE 2019-10-12 18:09:40 60 /min /min RESP RATE 2019-10-10 18:09:38 16 /min /min TEMP 2019-10-12 18:09:40 98.2 [degF] Procedures This patient has no known procedures. Results This patient has no known results.
--- OUTSIDE RECORDS SUMMARY | 2019-12-12 17:40 | XMS REPORT ---
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 10-11 Prashanth [id number] Legal Legal Diagnosis Active Antonio blindness, blindness, 10-11 Prashanth as defined as defined [id number] [place] 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 Prashanth and and [id number] 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 10-11 Prashanth [id number] Anxiety Anxiety Diagnosis Active Antonio disorder, disorder, Prashanth unspecified unspecified 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 (current) (current) Prashanth use of use of [id number] anticoagula anticoagula nts nts Personal Personal Diagnosis Active Antonio history of history of Prashanth nicotine nicotine [id number] dependence dependence Pain frequent Pain Mgmt Active 2018-10 [facility] pain [place] 09:10: [id number] 00 Respiratory dyspnea Respirator Active 2018-10 [facility] present y [place] 09:10: [id number] 00 Endo/Donato anti-coagul Endo/Donato Active 2018-10 Maria ation [place] therapy 09:10: [id number] 00 Sensory impaired Sensory Active 2018-10 [facility] vision [place] 09:10: [id number] 00 Sensory impaired Sensory Active 2018-10 [facility] hearing [place] 09:10: [id number] 00 Integument skin Integument Active 2018-10 Maria integrity [place] risk 09:10: [id number] 00 Nutrition nutritional Nutrition Active 2018-10 Maria restriction [place] s 09:10: [id number] 00 Elimination urinary Eliminatio Active 2018-10 Maria incontinenc n [place] e 09:10: [id number] 00 Neuro confusion Neuro/Emot Active 2018-10 Maria present ion [place] 09:10: [id number] 00 Neuro anxiety Neuro/Emot Active 2018-10 Maria present ion [place] 09:10: [id number] 00 Neuro impaired Neuro/Emot Active 2018-10 Maria decision-ma ion [place] christiano 09:10: [id number] 00 Neuro psychiatric Neuro/Emot Active 2018-10 Maria problems ion [place] 09:10: [id number] 00 Neuro memory Neuro/Emot Active 2018-10 Maria deficit ion [place] needing 09:10: [id number] supervision 00 Activity ADL Activity Active 2018-10 Maria assistance [place] required 09:10: [id number] 00 Activity self-care Activity Active 2018-10 Maria deficit [place] 09:10: [id number] 00 Safety cannot be Safety Active 2018-10 Maria left alone [place] 09:10: [id number] 00 Safety fall risk Safety Active 2018-10 Maria factor [place] present 09:10: [id number] 00 Safety risk for Safety Active 2018-10 Maria hospitaliza [place] tion 09:10: [id number] 00 Medication oral med Meds Active 2018-10 Maria assistance [place] required 09:10: [id number] 00 Medication injectable Meds Active 2018-10 Maria med [place] assistance 09:10: [id number] required 00 Musculoskel transfer Musculoske Active 2018-10 Maria etal assistance letal [place] required 09:10: [id number] 00 Musculoskel requires Musculoske Active 2018-10 Maria etal human letal [place] assist to 09:10: [id number] leave home 00 Safety can be left Safety Active 2018-10 Antonio alone for Prashanth only short 10:30: [id number] periods 00 Bed transfer PT/OT: Bed Active 2018-10 Antonio Mobility/Tr deficit: Mobility/T 2- Prashanth ansfer sit/stand ransfer 10:30: [id number] 00 Bed transfer PT/OT: Bed Active 2018-10 Antonio Mobility/Tr deficit: Mobility/T 2- Prashanth caylafer toilet/comm ransfer 10:30: [id number] ode 00 Bed transfer PT/OT: Bed Active 2018-10 Antonio Mobility/Tr deficit: Mobility/T 2- Prashanth ansfer shower/tub ransfer 10:30: [id number] 00 Bed knowledge/s PT/OT: Bed Active 2018-10 Antonio Mobility/Tr kill Mobility/T Prashanth ansfer deficit: pt ransfer 10:30: [id number] 00 Bed bed PT/OT: Bed Active 2018-10 Antonio Mobility/Tr mobility Mobility/T Prashanth ansfer deficit ransfer 10:30: [id number] 00 Gait/Locomo gait PT/OT: Active 2018-10 Antonio tion assistive Gait/Locom 2- Prashanth problems device otion 10:30: [id number] present 00 Gait/Locomo knowledge/s PT/OT: Active 2018-10 Antonio tion kill Gait/Locom - Prashanth problems deficit: pt otion 10:30: [id number] 00 Gait/Locomo gait PT/OT: Active 2018-10 Antonio tion deficit Gait/Locom -31 Prashanth problems otion 10:30: [id number] 00 Allergies, Adverse Reactions, Alerts Allergy Allergy Status Severity Reaction(s) Onset Inactive Treating Comments Name Type Date Date Clinician PCN Unknown Active Unknown Reaction 2018-06 [place] Unknown -01 (Francisco Javier) Ellen [id number] Medications Ordered Filled Start Stop Current Ordering [...]
[2019-12-12] MEDS ORDERED: fentaNYL* 50 MCG/ML 2 ML VIAL (100 MCG VIAL) IV SLOW PU ONE ×2 (18:36→22:16)
--- NOTE | 2019-12-12 19:11 | ED ---
Progress - Progress Note Progress Note: Patient signed out from Dr. Medrano at shift change at 19:00 December 12, [address] and disposition. Pelvic CT impression: Acute traumatic right posterior pelvic ring and right superior and inferior pubic rami and pelvic bone fractures. Spoke with Dr. Lawrence initially and he accepts the patient for admission to the hospitalist services. after review of the ct, Dr. Morales, orthopedics, suggests the patient be transferred for trauma evaluation because of significant pelvic fractures. Spoke with Dr. Gorman in the ED at [facility], and he accepts the patient for transfer for trauma evaluation. - Results/Orders Results/Orders: Pelvic CT impression: Acute traumatic right posterior pelvic ring and right superior and inferior pubic rami and pelvic bone fractures. ED physician had reviewed this report. Course/Dx - Course Course Of Treatment: Patient was administered Tylenol for temp 101. after fentanyl, pulsox dropped to less than 90%. patient placed on 2 L nc O2. accepted in transfer by Dr Gorman in the ED at [facility]. transferred by ambulance. - Diagnoses Provider Diagnoses: Fall, Hip pain, Shoulder pain, Pelvic fracture, Parkinsons - Provider Notifications Discussed Care Of Patient With: Rosalio Lawrence Instructed by Provider To: Other - Dr. Lawrence accepted the patient for admission however after speaking with Dr. Morales from orthopedics he states that we have to transfer the patient due to trauma. Spoke with Dr. Gorman in the ED at [facility] and he accepts the patient for transfer for trauma evaluation. Reason For Transfer: Patient not appropriate for [facility] [place]. Discharge ED - Sign-Out/Discharge Documenting (check all that apply): Patient Departure - Transfer, Receiving Sign -Out Receiving patient FROM: Tayler Medrano - Pending pelvic CT and disposition. - Discharge Plan Condition: Stable Disposition: TRANS HIGHER LVL OF CARE FAC Referrals: Jay Delacruz MD [Primary Care Provider] - - Billing Disposition and Condition Condition: STABLE Disposition: Trans Higher Lvl of Care Fac - Attestation Statements Document Initiated by Scribe: Yes Documenting Scribe: Barby Adame Provider For Whom Scribe is Documenting (Include Credential): Joana Duran MD Scribe Attestation: Abena Carlson Natalie George, scribed for Joana Duran MD on 12/12/19 at 2130. Scribe Documentation Reviewed: Yes Provider Attestation: The documentation as recorded by the scribe, Barby Adame accurately reflects the service I personally performed and the decisions made by me, Joana Duran MD Status of Scribe Document: Viewed Procedures - Sedation Patient Received Moderate/Deep Sedation with Procedure: No
[2019-12-12] MEDS ORDERED: Acetaminophen TAB* 325 MG PO ONE (19:21)
[2019-12-12 21:50] LABS: ABS Lymphocytes 0.5 10^3/ul (1.0-4.8); ABS Monocytes 0.5 10^3/ul (0-0.8); ABS Neutrophils 8.9 10^3/ul (1.5-7.7); Eosinophil % 0.1 %; Hematocrit 37 % (35-47); Hemoglobin 12.5 g/dL (12.0-16.0); Lymphocyte % 4.7 %; Mean Corpuscular HGB Conc 34 g/dL (31-36); Mean Corpuscular Hemoglobin 30 pg (27-31); Mean Corpuscular Volume 88 fL (80-97); Mean Platelet Volume 8.4 fL (7.4-10.4); Nucleated Red Blood Cells % 0.4; Platelet Count 145 10^3/uL (150-450); Red Blood Count 4.21 10^6 /uL (3.70-4.87); Red Cell Distribution Width 15 % (10-15); White Blood Count 9.8 10^3/uL (3.5-10.8)
[2019-12-12 22:01] LABS: INR 1.25 (0.82-1.09)
[2019-12-12 22:07] LABS: Albumin 3.9 g/dL (3.2-5.2); Albumin/Globulin Ratio 1.4 (1-3); BUN/Creatinine Ratio 26.8 (8-20); Calcium 9.2 mg/dL (8.6-10.3); EGFR African American 79.4 (>60); EGFR Non-African American 65.6 (>60); Globulin 2.8 g/dL (2-4); Potassium 4.4 mmol/L (3.5-5.0); Total Bilirubin 0.5 mg/dL (0.2-1.0); Total Protein 6.7 g/dL (6.4-8.9)
[2019-12-12 22:29] VITALS: BP 125/62
== END 2019-12-12 22:28 | disposition short-term general hospital (02) ==
LOC: ED 16:54
DX: M25.551 Pain in right hip (principal); M25.511 Pain in right shoulder; M79.661 Pain in right lower leg; S43.001A Unspecified subluxation of right shoulder joint, initial encounter; S32.591A Other specified fracture of right pubis, initial encounter for closed fracture; W19.XXXA Unspecified fall, initial encounter; Y92.129 Unspecified place in nursing home as the place of occurrence of the external cause; I38 Endocarditis, valve unspecified; H54.8 Legal blindness, as defined in USA; G20 Parkinson's disease; F41.9 Anxiety disorder, unspecified; F32.9 Major depressive disorder, single episode, unspecified; Z79.01 Long term (current) use of anticoagulants; Z88.0 Allergy status to penicillin; Z87.891 Personal history of nicotine dependence
CPT/HCPCS: 36415; 71045; 72192; 80053; 85025; 85610; 96374; 96376; 99284; A9270-GY; J3010